=== PATIENT | male | born 1990 | race Caucasian/White ===

== ENCOUNTER 2017-02-17 13:14 | Inpatient (IN) | payer OTHER ==
[2017-02-17 14:03] VITALS: BMI 20.3
--- NOTE | 2017-02-17 15:52 | HP ---
COWS - Scale Resting Pulse: 1= CO 81-100 Sweatin=Flushed/Facial Moisture Restless Observation: 1= Difficult to Sit Still Pupil Size: 0= Normal to Room Light Bone or Joint Aches: 2= Severe Diffuse Aches Runny Nose/ Eye Tearin= Runny Nose/Eyes GI Upset > 30mins: 2= Nausea/Diarrhea Tremor Observation: 2= Slight Tremor Visible Yawning Observation: 1= 1-2x During Session Anxiety or Irritability: 2=Irritable/Anxious Goose Flesh Skin: 3=Piloerection COWS Score: 18 Admission ROS BHS - HPI Chief Complaint: "I want to get clean. I need to start the process." Pt. is here to Detox from Heroin. Allergies/Adverse Reactions: Allergies Allergy/AdvReac Type Severity Reaction Status Date / Time No Known Allergies Allergy Verified 02/17/17 14:34 History of Present Illness: Pt. is a 26 YO male here to Detox form heroin. This is pt.'s first Detox admission at [facility]. Exam Limitations: No Limitations - Ebola screening Have you traveled outside of the country in the last 21 days: No Have you had contact with anyone from an Ebola affected area: No Have you been sick,other than usual withdrawal symptoms: No Do you have a fever: No - Review of Systems Constitutional: Chills, Diaphoresis, Fever, Loss of Appetite, Malaise, Night Sweats, Changes in sleep, Unintentional Wgt. Loss (Lost apporx. 10 lbs. over last 6 months.) EENT: reports: Nose Congestion, Sinus Pressure Respiratory: reports: No Symptoms reported Cardiac: reports: No Symptoms Reported GI: reports: Diarrhea, Nausea, Poor Appetite, Indigestion, Abdominal cramping : reports: No Symptoms Reported Musculoskeletal: reports: Back Pain, Joint Pain, Muscle Pain, Joint Stiffness Integumentary: reports: No Symptoms Reported Neuro: reports: Tremors Endocrine: reports: No Symptoms Reported (+) Hematology: reports: Easy Bruising Psychiatric: reports: No Sypmtoms Reported, Judgement Intact, Mood/Affect Appropiate, Orientated x3, Anxious, Depressed (Recent. No previous treatment. Patient devclines to be evlauted by Psychaitrist during this Detox admission.) Other Systems: Reviewed and Negative Patient History - Patient Medical History Hx Anemia: No Hx Asthma: No Hx Chronic Obstructive Pulmonary Disease (COPD): No Hx Cancer: No Hx Cardiac Disorders: No Hx Congestive Heart Failure: No Hx Hypertension: No Hx Hypercholesterolemia: No Hx Pacemaker: No HX Cerebrovascular Accident: No Hx Seizures: No Hx Dementia: No Hx Diabetes: No Hx Gastrointestinal Disorders: No Hx Liver Disease: No Hx Genitourinary Disorders: No Hx Sexually Transmitted Disorders: No Hx Renal Disease (ESRD): No Hx Thyroid Disease: No Hx Human Immunodeficiency Virus (HIV): No (Never Tested.) Hx Hepatitis C: No (Never Tested.) Hx Depression: Yes (Recent. No previous treatment. Pt. declines Psych. evaluation.) Hx Suicide Attempt: No (PATIENT DENIES CURRENT SI / HI.) Hx Bipolar Disorder: No Hx Schizophrenia: No Other Medical History: DECLINES. - Patient Surgical History Past Surgical History: No Hx Neurologic Surgery: No Hx Cataract Extraction: No Hx Cardiac Surgery: No Hx Lung Surgery: No Hx Breast Surgery: No Hx Breast Biopsy: No Hx Abdominal Surgery: No Hx Appendectomy: No Hx Cholecystectomy: No Hx Genitourinary Surgery: No Hx Section: No Hx Orthopedic Surgery: No Anesthesia Reaction: No - PPD History Previous Implant?: Yes Documented Results: Negative w/o proof Implanted On Prior [facility] Admission?: No PPD to be Administered?: Yes - Reproductive History Patient is a Female of Child Bearing Age (11 -55 yrs old): No (PATIENT IS MALE.) - Smoking Cessation Smoking history: Current every day smoker Have you smoked in the past 12 months: Yes Aproximately how many cigarettes per day: 10 Cigars Per Day: 0 Hx Chewing Tobacco Use: No Initiated information on smoking cessation: Yes 'Breaking Loose' booklet given: 02/17/17 (GIVEN ON UNIT.) - Substance & Tx. History Hx Alcohol Use: No Hx Substance Use: Yes Substance Use Type: Cocaine, Heroin Hx Substance Use Treatment: No - Substances Abused Heroin Route: Injection Frequency: Daily Amount used: 10 bags Age of first use: 24 Date of Last Use: 02/15/17 Cocaine Route: Inhalation Frequency: 1-3 times last 30 days Amount used: 1 GRAM. Age of first use: 19 Date of Last Use: 02/10/17 Family Disease History - Family Disease History Family History: Denies Admission Physical Exam BHS - Vital Signs Vital Signs: Vital Signs - 24 hr 02/17/17 14:00 Temperature 98.5 F Pulse Rate 95 H Respiratory 20 Rate Blood Pressure 119/74 - Physical General Appearance: Yes: Appropriately Dressed, Mild Distress, Thin, Tremorous, Sweating, Anxious HEENTM: Yes: Hearing grossly Normal, Normocephalic, Normal Voice, JESUS, Pharynx Normal Respiratory: Yes: Chest Non-Tender, Lungs Clear, No Respiratory Distress, No Accessory Muscle Use Neck: Yes: No masses,lesions,Nodules, Supple, Trachea in good position Breast: Yes: Breast Exam Deferred Cardiology: Yes: Regular Rhythm, Regular Rate, S1, S2 Abdominal: Yes: Normal Bowel Sounds, Non Tender, Flat, Soft Genitourinary: Yes: Within Normal Limits Back: Yes: Decreased Range of Motion Musculoskeletal: Yes: Gait Steady, Back pain, Joint Stiffness Extremities: Yes: Normal Range of Motion, Tremors Neurological: Yes: Fully Oriented, Alert, Normal Mood/Affect, Normal Response Integumentary: Yes: Normal Color, Warm, Track [place] (Noted on bilateral forearms. No signs of abscess or infection noted a taffected sites.) Lymphatic: Yes: Within Normal Limits - Diagnostic (1) Opioid dependence with withdrawal Current Visit: Yes Status: Acute (2) Cocaine dependence, uncomplicated Current Visit: Yes Status: Acute (3) Nicotine dependence Current Visit: Yes Status: Chronic Qualifiers: Nicotine product type: cigarettes Substance use status: uncomplicated Qualified Code(s): F17.210 - Nicotine dependence, cigarettes, uncomplicated (4) Depression (emotion) Current Visit: Yes Status: Acute Qualifiers: Depression Type: unspecified Qualified Code(s): F32.9 - Major depressive disorder, single episode, unspecified Comment: Patient Declines Psychiatric Evaluation during Detox admission. Cleared for Admission [facility] - Detox or Rehab [facility] Level of Care: Medically Managed Detox Regimen/Protocol: Methadone [facility] Breath Alcohol Content Breath Alcohol Content: 0 Urine Drug Screen - Results Drug Screen Negative: No Urine Drug Screen Results: GAURAV-Cocaine, OPI-Opiates
[2017-02-17] MEDS ORDERED: hydrOXYzine PAMOATE 50 MG CAPSULE (FP) PO PRN (16:16)
[2017-02-17] MEDS ORDERED: ACETAMINOPHEN 325 MG TABLET (FP) PO PRN (16:16)
[2017-02-17] MEDS ORDERED: IBUPROFEN 400 MG TABLET (FP) PO PRN (16:16)
[2017-02-17] MEDS ORDERED: LOPERAMIDE HCL 2 MG CAPSULE PO PRN (16:16)
[2017-02-17] MEDS ORDERED: P-EPHED 60MG/TRIPROLIDI 2.5MG TABLET PO PRN (16:16)
[2017-02-17] MEDS ORDERED: MAGNESIUM CITRATE 300 ML BOTTLE PO PRN (16:16)
[2017-02-17] MEDS ORDERED: guaiFENesin/D-METHORPHAN HB 10 ML UNIT-DOSE CUPS PO PRN (16:16)
[2017-02-17] MEDS ORDERED: MAGNESIUM HYDROX 2400MG/30ML ORAL SUSPENSION 30 ML CUP PO PRN (16:16)
[2017-02-17] MEDS ORDERED: MENTHOL/PHENOL 1 EACH UD MM PRN (16:16)
[2017-02-17] MEDS ORDERED: MAG HYDROX/AL HYDROX/SIMETH 30 ML UNIT-DOSE CUP PO PRN (16:16)
[2017-02-17] MEDS ORDERED: METHADONE HCL 10 MG TABLET (FOR DETOX USE ONLY) PO ONE ×2 (17:15→23:00)
[2017-02-17] MEDS: NICOTINE 21 MG/24 HOURS TOPICAL PATCH TD SCH (17:48)
[2017-02-17] MEDS: diazePAM 5 MG TABLET PO PRN ×2 (17:49→22:11)
[2017-02-17] MEDS: NICOTINE POLACRILEX 2 MG GUM BC PRN (17:56)
[2017-02-17] MEDS: THIAMINE HCL 100 MG TABLET (FP) PO SCH (22:10)
[2017-02-17] MEDS: diphenhydrAMINE HCL 50 MG CAPSULE PO PRN (22:13)
[2017-02-17 22:35] LABS: URINE APPEARANCE SLCLOUDY; URINE BILIRUBIN NEGATIVE (NEGATIVE); URINE BLOOD NEGATIVE (NEGATIVE); URINE COLOR YELLOW; URINE GLUCOSE (UA) NEGATIVE (NEGATIVE); URINE KETONE NEGATIVE (NEGATIVE); URINE LEUK ESTERASE NEGATIVE (NEGATIVE); URINE NITRITE NEGATIVE (NEGATIVE); URINE PROTEIN NEGATIVE (NEGATIVE); URINE UROBILINOGEN NEGATIVE mg/dL (0.2-1.0)
[2017-02-18] MEDS: diazePAM 5 MG TABLET PO PRN ×5 (05:33→23:14)
[2017-02-18 09:37] LABS: MCH 29.8 pg (25.7-33.7); MCHC 34.1 g/dl (32.0-35.9); MEAN CELL VOLUME 87.4 fl (80-96); MEAN PLT VOLUME 10.4 fl (7.5-11.1); PLATELET COUNT 257 K/MM3 (134-434); RDW 13.2 % (11.9-15.9); WHITE BLOOD COUNT 6.3 K/mm3 (4.0-10.0)
--- NOTE | 2017-02-18 09:59 | EKG ---
Test Reason : Blood Pressure : / mmHG Vent. Rate : 089 BPM Atrial Rate : 089 BPM P-R Int : 126 ms QRS Dur : 090 ms QT Int : 378 ms P-R-T Axes : 057 089 062 degrees QTc Int : 459 ms NORMAL SINUS RHYTHM WITH SINUS ARRHYTHMIA INCOMPLETE RBBB POSSIBLE LEFT ATRIAL ENLARGEMENT BORDERLINE ECG NO PREVIOUS ECGS AVAILABLE Confirmed by VALENTINO REILLY MD ([id number]) on 02/18/2017 9:59:20 AM Referred By: Confirmed By:VALENTINO REILLY MD
[2017-02-18] MEDS ORDERED: METHADONE HCL 10 MG TABLET (FOR DETOX USE ONLY) PO ONE (10:00)
[2017-02-18 10:03] LABS: ALBUMIN 4.3 g/dl (3.4-5.0); ALK PHOS 133 U/L (45-117); ANION GAP 9 (8-16); BILIRUBIN,TOTAL 0.5 mg/dL (0.2-1.0); CALCIUM 9.4 mg/dL (8.5-10.1); CO2 24 mmol/L (21-32); CREATININE 0.9 mg/dL (0.7-1.3); GLUCOSE,RANDOM 117 mg/dL (74-106); SGOT/AST 19 U/L (15-37); SGPT/ALT 37 U/L (12-78); TOT PROT 8.1 g/dl (6.4-8.2)
[2017-02-18] MEDS: NICOTINE 21 MG/24 HOURS TOPICAL PATCH TD SCH (10:12)
[2017-02-18] MEDS: PRENATAL VITAMINS W/ FOLIC ACID TABLET (FP) PO SCH (10:12)
[2017-02-18] MEDS: NICOTINE POLACRILEX 2 MG GUM BC PRN ×4 (10:13→20:55)
--- NOTE | 2017-02-18 10:15 | PN ---
BHS COWS - Scale Resting Pulse: 1= ME 81-100 Sweatin= Chills/Flushing Restless Observation: 3= Extraneous Movement Pupil Size: 0= Normal to Room Light Bone or Joint Aches: 4=Acute Joint/Muscle Pain Runny Nose/ Eye Tearin= Nasal Congestion GI Upset > 30mins: 1= Stomach Cramp Tremor Observation of Outstretched Hands: 2= Slight Tremor Visible Yawning Observation: 1= 1-2x During Session Anxiety or Irritability: 1=Feels Anxious/Irritable Goose Flesh Skin: 0=Smooth Skin COWS Score: 15 BHS Progress Note (SOAP) Subjective: ANXIETY,CHILLS,MUSCLE ACHES,STOMACH CRAMPS,INTERMITTENT SLEEP. ALERT O X 3. NAD. OOB AMBULATING AROUND UNIT. Objective: 02/18/17 10:06 Vital Signs 02/18/17 02/18/17 02/18/17 03:34 06:11 09:46 Temperature 97.2 F L 97.3 F L Pulse Rate 82 80 Respiratory 18 18 20 Rate Blood Pressure 123/85 142/87 Laboratory Last Values WBC 6.3 K/mm3 (4.0-10.0) 02/18/17 06:00 RBC 4.91 M/mm3 (4.00-5.60) 02/18/17 06:00 Hgb 14.6 GM/dL (11.7-16.9) 02/18/17 06:00 Hct 42.9 % (35.4-49) 02/18/17 06:00 MCV 87.4 fl (80-96) 02/18/17 06:00 MCH 29.8 pg (25.7-33.7) 02/18/17 06:00 MCHC 34.1 g/dl (32.0-35.9) 02/18/17 06:00 RDW 13.2 % (11.9-15.9) 02/18/17 06:00 Plt Count 257 K/MM3 (134-434) 02/18/17 06:00 MPV 10.4 fl (7.5-11.1) 02/18/17 06:00 Sodium 138 mmol/L (136-145) 02/18/17 06:00 Potassium 4.4 mmol/L (3.5-5.1) 02/18/17 06:00 Chloride 105 mmol/L (98-107) 02/18/17 06:00 Urine Color Yellow 02/17/17 21:15 Urine Appearance Slcloudy 02/17/17 21:15 Urine pH 8.0 (5.0-8.0) 02/17/17 21:15 Ur Specific [place] 1.020 (1.005-1.025) 02/17/17 21:15 Urine Protein Negative (NEGATIVE) 02/17/17 21:15 Urine Glucose (UA) Negative (NEGATIVE) 02/17/17 21:15 Urine Ketones Negative (NEGATIVE) 02/17/17 21:15 Urine Blood Negative (NEGATIVE) 02/17/17 21:15 Urine Nitrite Negative (NEGATIVE) 02/17/17 21:15 Urine Bilirubin Negative (NEGATIVE) 02/17/17 21:15 Urine Urobilinogen Negative mg/dL (0.2-1.0) 02/17/17 21:15 OTHER LABS PENDING REPEAT EKG: NSR RIGHT BBB PROLONGED QT ABNORMAL EKG DENIES CHEST DISCOMFORT OR PREVIOUS CARDIAC HX. PREVIOUSLY: NSR WITH SINUS ARRYTHMIA INCOMPLETE RBBB POSIBLE LEFT ATRIAL ENLARGEMENT BORDERLINE EKG Assessment: 02/18/17 10:07 WITHDRAWAL SX Plan: WITHDRAWAL SX INCREASE PO FLUIDS.
--- NOTE | 2017-02-18 10:25 | EKG ---
Test Reason : Blood Pressure : / mmHG Vent. Rate : 081 BPM Atrial Rate : 081 BPM P-R Int : 128 ms QRS Dur : 094 ms QT Int : 416 ms P-R-T Axes : 055 087 069 degrees QTc Int : 483 ms NORMAL SINUS RHYTHM INCOMPLETE RIGHT BUNDLE BRANCH BLOCK PROLONGED QT ABNORMAL ECG WHEN COMPARED WITH ECG OF 17-FEB-2017 17:59, NO SIGNIFICANT CHANGE WAS FOUND Confirmed by TOMMIE ALMONTE, VALENTINO ([id number]) on 02/18/2017 10:25:12 AM Referred By: Confirmed By:VALENTINO REILLY MD
[2017-02-18 11:01] LABS: HIV 1 & 2 AB NEGATIVE; HIV 1 AGp24 NEGATIVE
[2017-02-18] MEDS: THIAMINE HCL 100 MG TABLET (FP) PO SCH (22:01)
[2017-02-18] MEDS: diphenhydrAMINE HCL 50 MG CAPSULE PO PRN (22:01)
[2017-02-19] MEDS: diphenhydrAMINE HCL 50 MG CAPSULE PO PRN ×2 (01:46→22:07)
[2017-02-19] MEDS: diazePAM 5 MG TABLET PO PRN ×5 (06:00→23:17)
[2017-02-19] MEDS ORDERED: METHADONE HCL 5 MG TABLET (FOR DETOX USE ONLY) PO ONE (10:00)
[2017-02-19] MEDS: PRENATAL VITAMINS W/ FOLIC ACID TABLET (FP) PO SCH (10:09)
[2017-02-19] MEDS: NICOTINE 21 MG/24 HOURS TOPICAL PATCH TD SCH (10:09)
--- NOTE | 2017-02-19 10:26 | PN ---
BHS COWS - Scale Resting Pulse: 0= HI 80 or Below Sweatin= Chills/Flushing Restless Observation: 3= Extraneous Movement Pupil Size: 0= Normal to Room Light Bone or Joint Aches: 4=Acute Joint/Muscle Pain Runny Nose/ Eye Tearin= Nasal Congestion GI Upset > 30mins: 1= Stomach Cramp Tremor Observation of Outstretched Hands: 1= Tremor [place], Not Seen Yawning Observation: 1= 1-2x During Session Anxiety or Irritability: 1=Feels Anxious/Irritable Goose Flesh Skin: 0=Smooth Skin COWS Score: 13 BHS Progress Note (SOAP) Subjective: SLIGHT ANXIETY,CHILLS,SWEATS. Objective: 02/19/17 10:23 Vital Signs Temperature 96.5 F L 02/19/17 09:52 Pulse Rate 73 02/19/17 09:52 Respiratory Rate 16 02/19/17 09:52 Blood Pressure 136/84 02/19/17 09:52 O2 Sat by Pulse Oximetry (%) Laboratory Last Values WBC 6.3 K/mm3 (4.0-10.0) 02/18/17 06:00 RBC 4.91 M/mm3 (4.00-5.60) 02/18/17 06:00 Hgb 14.6 GM/dL (11.7-16.9) 02/18/17 06:00 Hct 42.9 % (35.4-49) 02/18/17 06:00 MCV 87.4 fl (80-96) 02/18/17 06:00 MCH 29.8 pg (25.7-33.7) 02/18/17 06:00 MCHC 34.1 g/dl (32.0-35.9) 02/18/17 06:00 RDW 13.2 % (11.9-15.9) 02/18/17 06:00 Plt Count 257 K/MM3 (134-434) 02/18/17 06:00 MPV 10.4 fl (7.5-11.1) 02/18/17 06:00 Sodium 138 mmol/L (136-145) 02/18/17 06:00 Potassium 4.4 mmol/L (3.5-5.1) 02/18/17 06:00 Chloride 105 mmol/L (98-107) 02/18/17 06:00 Carbon Dioxide 24 mmol/L (21-32) 02/18/17 06:00 Anion Gap 9 (8-16) 02/18/17 06:00 BUN 8 mg/dL (7-18) 02/18/17 06:00 Creatinine 0.9 mg/dL (0.7-1.3) 02/18/17 06:00 Creat Clearance w eGFR > 60 (>60) 02/18/17 06:00 Random Glucose 117 mg/dL (74-106) H 02/18/17 06:00 Calcium 9.4 mg/dL (8.5-10.1) 02/18/17 06:00 Total Bilirubin 0.5 mg/dL (0.2-1.0) 02/18/17 06:00 AST 19 U/L (15-37) 02/18/17 06:00 ALT 37 U/L (12-78) 02/18/17 06:00 Alkaline Phosphatase 133 U/L (45-117) H 02/18/17 06:00 Total Protein 8.1 g/dl (6.4-8.2) 02/18/17 06:00 Albumin 4.3 g/dl (3.4-5.0) 02/18/17 06:00 Urine Color Yellow 02/17/17 21:15 Urine Appearance Slcloudy 02/17/17 21:15 Urine pH 8.0 (5.0-8.0) 02/17/17 21:15 Ur Specific [place] 1.020 (1.005-1.025) 02/17/17 21:15 Urine Protein Negative (NEGATIVE) 02/17/17 21:15 Urine Glucose (UA) Negative (NEGATIVE) 02/17/17 21:15 Urine Ketones Negative (NEGATIVE) 02/17/17 21:15 Urine Blood Negative (NEGATIVE) 02/17/17 21:15 Urine Nitrite Negative (NEGATIVE) 02/17/17 21:15 Urine Bilirubin Negative (NEGATIVE) 02/17/17 21:15 Urine Urobilinogen Negative mg/dL (0.2-1.0) 02/17/17 21:15 RPR Titer Nonreactive (NONREACTIVE) 02/18/17 06:00 Hepatitis C Antibody <0.1 s/co ratio (0.0-0.9) 02/17/17 06:00 HIV 1&2 Antibody Screen Negative 02/17/17 06:00 HIV P24 Antigen Negative 02/17/17 06:00 Assessment: 02/19/17 10:23 WITHDRAWAL SX Plan: CONTINUE DETOX
[2017-02-19] MEDS: NICOTINE POLACRILEX 2 MG GUM BC PRN ×2 (17:24→20:28)
[2017-02-19] MEDS: THIAMINE HCL 100 MG TABLET (FP) PO SCH (22:06)
[2017-02-20] MEDS: diphenhydrAMINE HCL 50 MG CAPSULE PO PRN ×2 (00:22→22:05)
[2017-02-20] MEDS: diazePAM 5 MG TABLET PO PRN ×3 (05:27→14:29)
--- NOTE | 2017-02-20 09:22 | PN ---
BHS Progress Note (SOAP) Subjective: Interrupted Sleep. Objective: PT. A & O X 3, OBSERVED AMBULATING ON UNIT. NO ACUTE DISTRESS. 02/20/17 09:18 Vital Signs Temperature 96.9 F L 02/20/17 06:17 Pulse Rate 69 02/20/17 06:17 Respiratory Rate 18 02/20/17 06:17 Blood Pressure 129/87 02/20/17 06:17 O2 Sat by Pulse Oximetry (%) Laboratory Tests 02/17/17 02/17/17 02/17/17 06:00 06:00 21:15 WBC RBC Hgb Hct MCV MCH MCHC RDW Plt Count MPV Sodium Potassium Chloride Carbon Dioxide Anion Gap BUN Creatinine Creat Clearance w eGFR Random Glucose Calcium Total Bilirubin AST ALT Alkaline Phosphatase Total Protein Albumin Urine Color Yellow Urine Appearance Slcloudy Urine pH 8.0 Ur Specific [place] 1.020 Urine Protein Negative Urine Glucose (UA) Negative Urine Ketones Negative Urine Blood Negative Urine Nitrite Negative Urine Bilirubin Negative Urine Urobilinogen Negative RPR Titer Hepatitis C Antibody <0.1 HIV 1&2 Antibody Screen Negative HIV P24 Antigen Negative 02/18/17 02/18/17 02/18/17 06:00 06:00 06:00 WBC 6.3 RBC 4.91 Hgb 14.6 Hct 42.9 MCV 87.4 MCH 29.8 MCHC 34.1 RDW 13.2 Plt Count 257 MPV 10.4 Sodium 138 Potassium 4.4 Chloride 105 Carbon Dioxide 24 Anion Gap 9 BUN 8 Creatinine 0.9 Creat Clearance w eGFR > 60 Random Glucose 117 H Calcium 9.4 Total Bilirubin 0.5 AST 19 ALT 37 Alkaline Phosphatase 133 H Total Protein 8.1 Albumin 4.3 Urine Color Urine Appearance Urine pH Ur Specific [place] Urine Protein Urine Glucose (UA) Urine Ketones Urine Blood Urine Nitrite Urine Bilirubin Urine Urobilinogen RPR Titer Nonreactive Hepatitis C Antibody HIV 1&2 Antibody Screen HIV P24 Antigen LABS NOTED. Assessment: 02/20/17 09:18 WITHDRAWAL SYMPTOMS. Plan: CONTINUE DETOX. PATIENT REPORTS MINIMAL DETOX SYMPTOMS AND THAT HE FEELING WELL OVERALL. AT PATIENT'S REQUEST, CURRENT DETOX MEDICATION REGIMEN (METHADONE) MODIFIED SO THAT PATIENT MAY BE DISCHARGED ON 02/21/2017.
[2017-02-20] MEDS ORDERED: METHADONE HCL 10 MG TABLET (FOR DETOX USE ONLY) PO ONE (10:00)
[2017-02-20] MEDS ORDERED: METHADONE HCL 5 MG TABLET (FOR DETOX USE ONLY) PO ONE (10:00)
[2017-02-20] MEDS: NICOTINE 21 MG/24 HOURS TOPICAL PATCH TD SCH (10:07)
[2017-02-20] MEDS: PRENATAL VITAMINS W/ FOLIC ACID TABLET (FP) PO SCH (10:08)
[2017-02-20] MEDS: NICOTINE POLACRILEX 2 MG GUM BC PRN ×3 (13:05→23:36)
[2017-02-20] MEDS: THIAMINE HCL 100 MG TABLET (FP) PO SCH (22:05)
[2017-02-21] MEDS: diphenhydrAMINE HCL 50 MG CAPSULE PO PRN (01:04)
[2017-02-21] MEDS ORDERED: METHADONE HCL 5 MG TABLET (FOR DETOX USE ONLY) PO ONE (06:00)
[2017-02-21 06:32] VITALS: BP 123/76; PULSE 75; TEMP 96.8
[2017-02-21] MEDS ORDERED: METHADONE HCL 10 MG TABLET (FOR DETOX USE ONLY) PO ONE (10:00)
--- NOTE | 2017-02-21 20:03 | DS ---
[facility] Detox Discharge Summary Admission Date: 02/17/17 Discharge Date: 02/21/17 - History Present History: Cocaine Dependence, Opioid Dependence Additional Comments: PATIENT GOING TO [facility] ([facility]) FOR AFTERCARE. PATIENT WAS DISCHARGED FROM DETOX UNIT IN STABLE MEDICAL CONDITION. Pertinent Past History: Depression. - Physical Exam Results Vital Signs: Vital Signs Temperature 96.8 F L 02/21/17 06:32 Pulse Rate 75 02/21/17 06:32 Respiratory Rate 16 02/21/17 06:32 Blood Pressure 123/76 02/21/17 06:32 O2 Sat by Pulse Oximetry (%) Pertinent Admission Physical Exam Findings: WITHDRAWAL SYMPTOMS. Laboratory Tests 02/17/17 02/17/17 02/17/17 06:00 06:00 21:15 WBC RBC Hgb Hct MCV MCH MCHC RDW Plt Count MPV Sodium Potassium Chloride Carbon Dioxide Anion Gap BUN Creatinine Creat Clearance w eGFR Random Glucose Calcium Total Bilirubin AST ALT Alkaline Phosphatase Total Protein Albumin Urine Color Yellow Urine Appearance Slcloudy Urine pH 8.0 Ur Specific [place] 1.020 Urine Protein Negative Urine Glucose (UA) Negative Urine Ketones Negative Urine Blood Negative Urine Nitrite Negative Urine Bilirubin Negative Urine Urobilinogen Negative RPR Titer Hepatitis C Antibody <0.1 HIV 1&2 Antibody Screen Negative HIV P24 Antigen Negative 02/18/17 02/18/17 02/18/17 06:00 06:00 06:00 WBC 6.3 RBC 4.91 Hgb 14.6 Hct 42.9 MCV 87.4 MCH 29.8 MCHC 34.1 RDW 13.2 Plt Count 257 MPV 10.4 Sodium 138 Potassium 4.4 Chloride 105 Carbon Dioxide 24 Anion Gap 9 BUN 8 Creatinine 0.9 Creat Clearance w eGFR > 60 Random Glucose 117 H Calcium 9.4 Total Bilirubin 0.5 AST 19 ALT 37 Alkaline Phosphatase 133 H Total Protein 8.1 Albumin 4.3 Urine Color Urine Appearance Urine pH Ur Specific [place] Urine Protein Urine Glucose (UA) Urine Ketones Urine Blood Urine Nitrite Urine Bilirubin Urine Urobilinogen RPR Titer Nonreactive Hepatitis C Antibody HIV 1&2 Antibody Screen HIV P24 Antigen LABS NOTED. - Treatment Hospital Course: Detox Protocol Followed, Detoxed Safely, Responded well, Discharged Condition Good, Rehab Referral Accepted Patient has Accepted a Rehab Referral to: [facility] ([facility] - Medication Discharge Medications: Ambulatory Orders NK [No Known Home Medication] 02/17/17 - Diagnosis (1) Opioid dependence with withdrawal Status: Acute (2) Cocaine dependence, uncomplicated Status: Acute (3) Nicotine dependence Status: Chronic Qualifiers: Nicotine product type: cigarettes Substance use status: uncomplicated Qualified Code(s): F17.210 - Nicotine dependence, cigarettes, uncomplicated (4) Depression (emotion) Status: Acute Qualifiers: Depression Type: unspecified Qualified Code(s): F32.9 - Major depressive disorder, single episode, unspecified - AMA Did Patient Leave Against Medical Advice: No
[2017-02-22] MEDS ORDERED: METHADONE HCL 5 MG TABLET (FOR DETOX USE ONLY) PO ONE (06:00)
== END 2017-02-21 09:34 | disposition home or self-care (01) | DRG 773 ==
LOC: YASAS 13:14 → Y3N 15:40
PROVIDERS: ADMIT Internal Medicine; ATTEND Internal Medicine
PROC: HZ2ZZZZ Detoxification Services for Substance Abuse Treatment (ICD-10-PCS; principal; 2017-02-17)
DX: F11.23 Opioid dependence with withdrawal (principal); F14.20 Cocaine dependence, uncomplicated; F17.210 Nicotine dependence, cigarettes, uncomplicated; F32.9 Major depressive disorder, single episode, unspecified
CPT/HCPCS: 36415; 80053; 81003; 85027; 86593; 86803; 87389; 93005; 93010

== ENCOUNTER 2019-03-07 17:01 | Inpatient (IN) | payer OTHER ==
[2019-03-07 19:45] VITALS: BMI 23.1
--- NOTE | 2019-03-07 21:45 | HP ---
"COWS - Scale Resting Pulse: 0= [place] 80 or Below Sweatin=Flushed/Facial Moisture Restless Observation: 1= Difficult to Sit Still Pupil Size: 2= Moderately Dilated (Pupils = 5 mm) Bone or Joint Aches: 1= Mild Discomfort Runny Nose/ Eye Tearin= Nasal Congestion GI Upset > 30mins: 1= Stomach Cramp Tremor Observation: 2= Slight Tremor Visible Yawning Observation: 0= None Anxiety or Irritability: 2=Irritable/Anxious Goose Flesh Skin: 0=Smooth Skin COWS Score: 12 CIWA Score - Admission Criteria OASAS Guidelines: Admission for Medically Managed Detox: Requires at least one of the followin. CIWA greater than 12 2. Seizures within the past 24 hours 3. Delirium tremens within the past 24 hours 4. Hallucinations within the past 24 hours 5. Acute intervention needed for co occurring medical disorder 6. Acute intervention needed for co occurring psychiatric disorder 7. Severe withdrawal that cannot be handled at a lower level of care (continued vomiting, continued diarrhea, abnormal vital signs) requiring intravenous medication and/or fluids 8. Admitting History and Physical - Smoking History Smoking history: Current every day smoker Have you smoked in the past 12 months: Yes Aproximately how many cigarettes per day: 10 - Alcohol/Substance Use Hx Alcohol Use: No Admission ROS S - HPI Chief Complaint: Here for detox. Allergies/Adverse Reactions: Allergies Allergy/AdvReac Type Severity Reaction Status Date / Time No Known Allergies Allergy Verified 03/07/19 19:36 History of Present Illness: 28 yo presents w/ heroin withdrawal and seeking detox. Patient states needs to leave in five days. Heroin use began at age 24. Current use is 7 bags/day, IV. for 1.5 months. Denies sharing needles or works. Benzo - denies use. Overdose in 2018. [facility] has Narcan Kit @ home Seizure in 2014 unknown reason. [facility] all tests were normal. Denies blackouts. Alcohol use 5-6 beers approx 1-2 x/month, at most. Nicotine use began at age 18. Current use is 1/2 PPD. 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 MHHx: Denies depression. Denies thoughts of harming self or others. SHx: Lives w/ parents. Unemployed. Search Terms: Bryan Benz, 1990 Search Date: 03/07/2019 09:37:45 PM The Drug Utilization Report below displays all of the controlled substance prescriptions, if any, that your patient has filled in the last twelve months. The information displayed on this report is compiled from pharmacy submissions to the Department, and accurately reflects the information as submitted by the pharmacies. This report was requested by: Jaimee Thompson | Reference #: [id number] There are no results for the search terms that you entered. Search Terms: Bryan Benz, 1990 Search Date: 03/07/2019 09:38:14 PM States Searched: [place], [place], [place], [place], [place], [place], [place] The Drug Utilization Report below displays the controlled substance prescriptions, if any, that were dispensed in the indicated state(s). The information displayed on this report is compiled from requests submitted to other states' PMPs, and accurately reflects the information as returned by them. Blank quispe indicate data not provided by other state. This report was requested by: Jaimee Thompson | Reference #: [id number] There are no results for the search terms that you entered. Exam Limitations: No Limitations - Ebola screening Have you traveled outside of the country in the last 21 days: No (N) Have you had contact with anyone from an Ebola affected area: No Have you been sick,other than usual withdrawal symptoms: No Do you have a fever: No - Review of Systems Constitutional: Chills, Diaphoresis, Changes in sleep (Difficulty falling asleep. Not taking any meds) EENT: reports: Nose Congestion Respiratory: reports: No Symptoms reported Cardiac: reports: No Symptoms Reported GI: reports: Abdominal cramping : reports: No Symptoms Reported Musculoskeletal: reports: Other (Bone pain r/t withdrawal) Integumentary: reports: No Symptoms Reported Neuro: reports: Seizure Endocrine: reports: No Symptoms Reported Hematology: reports: No Symptoms Reported Psychiatric: reports: Mood/Affect Appropiate, Orientated x3, Anxious Patient History - Patient Medical History Hx Anemia: No Hx Asthma: No Hx Chronic Obstructive Pulmonary Disease (COPD): No Hx Cancer: No Hx Cardiac Disorders: No Hx Congestive Heart Failure: No Hx Hypertension: No Hx Hypercholesterolemia: No Hx Pacemaker: No HX Cerebrovascular Accident: No Hx Seizures: No Hx Dementia: No Hx Diabetes: No Hx Gastrointestinal Disorders: No Hx Liver Disease: No Hx Genitourinary Disorders: No Hx Sexually Transmitted Disorders: No Hx Renal Disease (ESRD): No Hx Thyroid Disease: No Hx Human Immunodeficiency Virus (HIV): No (Never Tested.) Hx Hepatitis C: No (Never Tested.) Hx Depression: Yes (Recent. No previous treatment. Pt. declines Psych. evaluation.) Hx Suicide Attempt: No (PATIENT DENIES CURRENT SI / HI.) Hx Bipolar Disorder: No Hx Schizophrenia: No - Patient Surgical History Past Surgical History: No Hx Neurologic Surgery: No Hx Cataract Extraction: No Hx Cardiac Surgery: No Hx Lung Surgery: No Hx Breast Surgery: No Hx Breast Biopsy: No Hx Abdominal Surgery: No Hx Appendectomy: No Hx Cholecystectomy: No Hx Genitourinary Surgery: No Hx Section: No Hx Orthopedic Surgery: No Anesthesia Reaction: No - PPD History Previous Implant?: Yes Documented Results: Negative w/proof Implanted On Prior [facility] Admission?: Yes Date: 02/19/17 PPD to be Administered?: Yes - Smoking Cessation Smoking history: Current every day smoker Have you smoked in the past 12 months: Yes Aproximately how many cigarettes per day: 10 Cigars Per Day: 0 Hx Chewing Tobacco Use: No Initiated information on smoking cessation: Yes 'Breaking Loose' booklet given: 03/07/19 - Substance & Tx. History Hx Alcohol Use: Yes (!-2 x / month, at most) Hx Substance Use: Yes Substance Use Type: Heroin, Opiates Hx Substance Use Treatment: Yes (detox, rehab) - Substances abused Heroin Substance route: Injection Frequency: Daily Amount used: $70 Age of first use: 24 Date of last use: 03/07/19 Admission Physical Exam S - Vital Signs Vital Signs: Vital Signs - 24 hr 03/07/19 19:36 Temperature 98.1 F Pulse Rate 74 Respiratory 20 Rate Blood Pressure 148/85 - Physical General Appearance: Yes: Nourished, Mild Distress, Tremorous, Sweating ( Increased facial moisture), Anxious HEENTM: Yes: EOMI, Hearing grossly Normal, Normal ENT Inspection, Normocephalic , Normal Voice, JESUS (Pupils = 5 mm), Pharynx Normal, Nasal Congestion, Other ( Thickened saliva.) Respiratory: Yes: Lungs Clear (Pulse Ox = 99 %), Normal Breath Sounds, No Respiratory Distress Neck: Yes: No masses,lesions,Nodules, Supple Breast: Yes: Breast Exam Deferred Cardiology: Yes: Regular Rhythm, Regular Rate, S1, S2 Abdominal: Yes: Normal Bowel Sounds, Non Tender, Flat, Soft Genitourinary: Yes: Within Normal Limits Back: Yes: Normal Inspection Musculoskeletal: Yes: full range of Motion, Gait Steady Extremities: Yes: Normal Capillary Refill, Tremors Neurological: Yes: clinical laboratory assistant II-XII NML intact, Fully Oriented, Alert, Motor Strength 5/5 Integumentary: Yes: Normal Color, Warm, Diaphoresis (Increased facial moisture) , Rash (Dry, flaky rash (R) palm), Track Huerta (antecubital areas. No increased warmth, erythmea, or swelling.), Other (Decreased skin turgor.) Lymphatic: Yes: Within Normal Limits - Diagnostic (1) History of abnormal electrocardiogram Current Visit: Yes Status: Chronic (2) Opioid dependence with withdrawal Current Visit: Yes Status: Acute (3) Nicotine dependence Current Visit: Yes Status: Chronic Qualifiers: Nicotine product type: cigarettes Substance use status: uncomplicated Qualified Code(s): F17.210 - Nicotine dependence, cigarettes, uncomplicated (4) IVDU (intravenous drug user) Current Visit: Yes Status: Chronic (5) Eczema Current Visit: Yes Status: Chronic Qualifiers: Eczema type: unspecified Qualified Code(s): L30.9 - Dermatitis, unspecified (6) Dehydration symptoms Current Visit: Yes Status: Acute Cleared for Admission [facility] - Detox or Rehab [facility] Level of Care: Medically Managed Detox Regimen/Protocol: Methadone Claeared for Rehab Admission: No Breathalyzer - Breathalyzer Breathalyzer: 0 Urine Drug Screen - Test Device Lot number: [id number] Expiration date: 11/05/20 - Control Is test valid?: Yes - Results Drug screen NEGATIVE: Yes Urine drug screen results: FEN-Fentanyl, MOP-Opiates, BZO-Benzodiazepines Inpatient Rehab Admission - Rehab Decision to Admit Inpatient rehab admission?: No"
[2019-03-07] MEDS ORDERED: PROCHLORPERAZINE MALEATE 5 MG TABLET PO PRN (22:04)
[2019-03-07] MEDS ORDERED: METHADONE HCL 10 MG TABLET (FOR DETOX USE ONLY) PO ONE (22:04)
[2019-03-07] MEDS ORDERED: MAGNESIUM HYDROX 2400MG/30ML ORAL SUSPENSION 30 ML CUP PO PRN (22:04)
[2019-03-07] MEDS ORDERED: MENTHOL/PHENOL 1 EACH UD MM PRN (22:04)
[2019-03-07] MEDS ORDERED: IBUPROFEN 400 MG TABLET (FP) PO PRN (22:04)
[2019-03-07] MEDS ORDERED: MAGNESIUM CITRATE 300 ML BOTTLE PO PRN (22:04)
[2019-03-07] MEDS ORDERED: MELATONIN 5 MG TABLETS PO PRN (22:04)
[2019-03-07] MEDS ORDERED: ACETAMINOPHEN 325 MG TABLET (FP) PO PRN ×2 (22:04)
[2019-03-07] MEDS ORDERED: cloNIDine HCL 0.1 MG TABLET PO PRN (22:04)
[2019-03-07] MEDS ORDERED: BISMUTH SUBSALICYLATE 524 MG/30 ML UD PO PRN (22:04)
[2019-03-07] MEDS ORDERED: MAG HYDROX/AL HYDROX/SIMETH 30 ML UNIT-DOSE CUP PO PRN (22:04)
[2019-03-07] MEDS ORDERED: HYDROCORTISONE 1% TOPICAL CREAM 30 GM TUBE TP PRN (22:15)
[2019-03-07] MEDS ORDERED: QUEtiapine FUMARATE 50 MG TABLET PO ONE (23:00)
--- NOTE | 2019-03-08 08:33 | CONSULT ---
[facility] Psychiatric Consult - Data Date of interview: 03/08/19 Admission source: Self-referred Identifying data: Mr Benz is a 28 years old single male, unemployed with no source of income, living with family seeking detox treatment for alcohol and opioid Substance Abuse History: Reports history of alcohol and heroin use. Refer to addiction counselor's summary for further information Medical History: Significant for history of withdral siezure. Smokes 10 cigarettes daily Psychiatric History: Denies history of previous psychiatric treatment Physical/Sexual Abuse/Trauma History: Denies history of emotional, physical or sexual abuse as well as DV relationship Mental Status Exam - Mental Status Exam Alert and Oriented to: Time, Place, Person Cognitive Function: Fair Patient Appearance: Disheveled Mood: Hopeful, Euthymic Patient Behavior: Cooperative Speech Pattern: Clear Thought Process: Goal Oriented Hallucinations: Denies Suicidal Ideation: Denies Homicidal Ideation: Denies Insight/Judgement: Poor Sleep: Poorly Appetite: Good Muscle strength/Tone: Normal Gait/Station: Normal Psychiatric Findings - Problem List ([place] 1, 2,3) (1) Substance-induced sleep disorder Current Visit: Yes Status: Acute (2) Opioid dependence with withdrawal Current Visit: Yes Status: Acute (3) Alcohol abuse Current Visit: Yes Status: Acute (4) Nicotine dependence Current Visit: Yes Status: Chronic Qualifiers: Nicotine product type: cigarettes Substance use status: uncomplicated Qualified Code(s): F17.210 - Nicotine dependence, cigarettes, uncomplicated - Initial Treatment Plan Initial Treatment Plan: 1) Start Belsomra 10 mg po HS prn for insomnia. 2) Continue inpatient detoxification
[2019-03-08] MEDS: NICOTINE POLACRILEX 2 MG GUM BUC PRN ×3 (09:58→21:06)
[2019-03-08] MEDS: PRENATAL VITAMINS W/ FOLIC ACID TABLET (FP) PO SCH (09:58)
[2019-03-08] MEDS: NICOTINE 14 MG/24 HOURS TOPICAL PATCH TD SCH (09:58)
[2019-03-08] MEDS ORDERED: METHADONE HCL 10 MG TABLET PO ONE (10:00)
--- NOTE | 2019-03-08 10:14 | EKG ---
Test Reason : Blood Pressure : / mmHG Vent. Rate : 069 BPM Atrial Rate : 069 BPM P-R Int : 134 ms QRS Dur : 096 ms QT Int : 428 ms P-R-T Axes : 027 085 065 degrees QTc Int : 458 ms NORMAL SINUS RHYTHM INCOMPLETE RIGHT BUNDLE BRANCH BLOCK BORDERLINE ECG WHEN COMPARED WITH ECG OF 18-FEB-2017 09:09, NO SIGNIFICANT CHANGE WAS FOUND Confirmed by Dameon Escamilla MD ([id number]) on 03/08/2019 10:14:06 AM Referred By: Confirmed By:Dameon Escamilla MD
[2019-03-08 11:59] LABS: HEMATOCRIT 38.8 % (35.4-49); HEMOGLOBIN 13.4 GM/dL (11.7-16.9); MCH 31.4 pg (25.7-33.7); MCHC 34.6 g/dl (32.0-35.9); MEAN PLT VOLUME 9.2 fl (7.5-11.1); PLATELET COUNT 267 K/MM3 (134-434); RBC 4.27 M/mm3 (4.00-5.60); RDW 12.8 % (11.9-15.9); WHITE BLOOD COUNT 7.9 K/mm3 (4.0-10.0)
--- NOTE | 2019-03-08 12:44 | PN ---
[facility] COWS - Scale Resting Pulse: 0= [place] 80 or Below Sweatin=Flushed/Facial Moisture Restless Observation: 1= Difficult to Sit Still Pupil Size: 0= Normal to Room Light Bone or Joint Aches: 1= Mild Discomfort Runny Nose/ Eye Tearin= Runny Nose/Eyes GI Upset > 30mins: 1= Stomach Cramp Tremor Observation of Outstretched Hands: 1= Tremor [place], Not Seen Yawning Observation: 1= 1-2x During Session Anxiety or Irritability: 2=Irritable/Anxious Goose Flesh Skin: 0=Smooth Skin COWS Score: 11 [facility] Progress Note (SOAP) Subjective: agitation sweats shakes interrupted sleep body aches irritable Objective: 03/08/19 12:37 Vital Signs Temperature 96.8 F L 03/08/19 09:48 Pulse Rate 71 03/08/19 09:48 Respiratory Rate 18 03/08/19 09:48 Blood Pressure 126/58 L 03/08/19 09:48 O2 Sat by Pulse Oximetry (%) Laboratory Tests 03/08/19 08:45 WBC 7.9 RBC 4.27 Hgb 13.4 Hct 38.8 MCV 91.0 MCH 31.4 MCHC 34.6 RDW 12.8 Plt Count 267 MPV 9.2 D rest of labs pending aaox3 ambulating no acute distress Assessment: 03/08/19 12:37 withdrawals sx Plan: continue detox increase fluids valium 10mg prn x 3 days only
[2019-03-08 12:48] LABS: ALBUMIN 3.6 g/dl (3.4-5.0); BILIRUBIN,TOTAL 0.2 mg/dL (0.2-1); BLOOD UREA NITROGEN 12.4 mg/dL (7-18); CREATININE 1.3 mg/dL (0.55-1.3); POTASSIUM 4.4 mmol/L (3.5-5.1); TOT PROT 6.6 g/dl (6.4-8.2)
[2019-03-08] MEDS: THIAMINE HCL 100 MG TABLET (FP) PO SCH (22:15)
[2019-03-08] MEDS: SUVOREXANT 10 MG TABLET PO PRN (22:15)
[2019-03-08] MEDS: diazePAM 5 MG TABLET PO PRN (22:15)
[2019-03-09] MEDS: PRENATAL VITAMINS W/ FOLIC ACID TABLET (FP) PO SCH (09:34)
[2019-03-09] MEDS: NICOTINE 14 MG/24 HOURS TOPICAL PATCH TD SCH (09:35)
[2019-03-09] MEDS: NICOTINE POLACRILEX 2 MG GUM BUC PRN ×4 (09:36→20:44)
[2019-03-09] MEDS: diazePAM 5 MG TABLET PO PRN ×4 (09:39→22:40)
[2019-03-09] MEDS ORDERED: METHADONE HCL 5 MG TABLET (FOR DETOX USE ONLY) PO ONE (10:00)
--- NOTE | 2019-03-09 10:52 | PN ---
B[facility] COWS - Scale Resting Pulse: 0= [place] 80 or Below Sweatin= Chills/Flushing Restless Observation: 1= Difficult to Sit Still Pupil Size: 0= Normal to Room Light Bone or Joint Aches: 2= Severe Diffuse Aches Runny Nose/ Eye Tearin= Nasal Congestion GI Upset > 30mins: 0= None Tremor Observation of Outstretched Hands: 1= Tremor [place], Not Seen Yawning Observation: 1= 1-2x During Session Anxiety or Irritability: 2=Irritable/Anxious Goose Flesh Skin: 0=Smooth Skin COWS Score: 9 [facility] Progress Note (SOAP) Subjective: restless chills hot/cold sweats interrupted sleep Objective: 03/09/19 10:52 Vital Signs Temperature 97.7 F 03/09/19 09:23 Pulse Rate 74 03/09/19 09:23 Respiratory Rate 18 03/09/19 09:23 Blood Pressure 143/80 03/09/19 09:23 O2 Sat by Pulse Oximetry (%) Laboratory Tests 03/08/19 03/08/19 03/08/19 08:45 08:45 08:45 WBC 7.9 RBC 4.27 Hgb 13.4 Hct 38.8 MCV 91.0 MCH 31.4 MCHC 34.6 RDW 12.8 Plt Count 267 MPV 9.2 D Sodium 141 Potassium 4.4 Chloride 106 Carbon Dioxide 28 Anion Gap 7 L BUN 12.4 Creatinine 1.3 Est GFR (CKD-EPI)AfAm 84.86 Est GFR (CKD-EPI)NonAf 73.22 Random Glucose 92 Calcium 9.0 Total Bilirubin 0.2 AST 6 L ALT 18 Alkaline Phosphatase 87 Total Protein 6.6 Albumin 3.6 RPR Titer Nonreactive labs noted aaox3 ambulating no acute distress Assessment: 03/09/19 10:52 withdrawals Plan: continue detox increase fluids
[2019-03-09] MEDS: THIAMINE HCL 100 MG TABLET (FP) PO SCH (22:09)
[2019-03-09] MEDS: SUVOREXANT 10 MG TABLET PO PRN (22:09)
[2019-03-10] MEDS ORDERED: METHADONE HCL 10 MG TABLET (FOR DETOX USE ONLY) PO ONE (10:00)
[2019-03-10] MEDS: NICOTINE 14 MG/24 HOURS TOPICAL PATCH TD SCH (10:02)
[2019-03-10] MEDS: PRENATAL VITAMINS W/ FOLIC ACID TABLET (FP) PO SCH (10:02)
[2019-03-10] MEDS: NICOTINE POLACRILEX 2 MG GUM BUC PRN ×4 (10:03→21:45)
[2019-03-10] MEDS: diazePAM 5 MG TABLET PO PRN ×4 (10:05→23:00)
[2019-03-10] MEDS ORDERED: DICYCLOMINE HCL 10 MG CAPSULE PO PRN (12:35)
--- NOTE | 2019-03-10 12:35 | PN ---
B[facility] COWS - Scale Resting Pulse: 0= [place] 80 or Below Sweatin= Chills/Flushing Restless Observation: 1= Difficult to Sit Still Pupil Size: 0= Normal to Room Light Bone or Joint Aches: 1= Mild Discomfort Runny Nose/ Eye Tearin= None GI Upset > 30mins: 0= None Tremor Observation of Outstretched Hands: 0= None Yawning Observation: 0= None Anxiety or Irritability: 1=Feels Anxious/Irritable Goose Flesh Skin: 0=Smooth Skin COWS Score: 4 [facility] Progress Note (SOAP) Subjective: anxiety upset stomach cramping Objective: 03/10/19 12:34 Vital Signs Temperature 97.9 F 03/10/19 09:47 Pulse Rate 79 03/10/19 09:47 Respiratory Rate 16 03/10/19 09:47 Blood Pressure 138/82 03/10/19 09:47 O2 Sat by Pulse Oximetry (%) aaox3 ambulating no acute distress Assessment: 03/10/19 12:34 mild withdrawals Plan: continue detox increase fluids bently prn d/c in am
[2019-03-10] MEDS: METHOCARBAMOL 500 MG TABLET PO PRN ×2 (14:14→21:44)
[2019-03-10] MEDS: THIAMINE HCL 100 MG TABLET (FP) PO SCH (21:44)
[2019-03-10] MEDS: SUVOREXANT 10 MG TABLET PO PRN (21:44)
[2019-03-11] MEDS ORDERED: METHADONE HCL 5 MG TABLET (FOR DETOX USE ONLY) PO ONE (06:00)
[2019-03-11] MEDS: NICOTINE POLACRILEX 2 MG GUM BUC PRN ×2 (06:49→09:11)
[2019-03-11] MEDS: METHOCARBAMOL 500 MG TABLET PO PRN (06:49)
[2019-03-11] MEDS: diazePAM 5 MG TABLET PO PRN (06:49)
--- NOTE | 2019-03-11 08:33 | DS ---
[facility] Detox Discharge Summary Admission Date: 03/07/19 Discharge Date: 03/11/19 - History Present History: Alcohol Dependence, Cannabis Dependence, Cocaine Dependence, Opioid Dependence - Physical Exam Results Vital Signs: Vital Signs Temperature 97.2 F L 03/11/19 07:40 Pulse Rate 72 03/11/19 07:40 Respiratory Rate 18 03/11/19 07:40 Blood Pressure 140/66 03/11/19 07:40 O2 Sat by Pulse Oximetry (%) Pertinent Admission Physical Exam Findings: pt arrived in withdrawals Laboratory Tests 03/08/19 03/08/19 03/08/19 08:45 08:45 08:45 WBC 7.9 RBC 4.27 Hgb 13.4 Hct 38.8 MCV 91.0 MCH 31.4 MCHC 34.6 RDW 12.8 Plt Count 267 MPV 9.2 D Sodium 141 Potassium 4.4 Chloride 106 Carbon Dioxide 28 Anion Gap 7 L BUN 12.4 Creatinine 1.3 Est GFR (CKD-EPI)AfAm 84.86 Est GFR (CKD-EPI)NonAf 73.22 Random Glucose 92 Calcium 9.0 Total Bilirubin 0.2 AST 6 L ALT 18 Alkaline Phosphatase 87 Total Protein 6.6 Albumin 3.6 RPR Titer Nonreactive pt is aaox3 ambulating no s/s of withdrawals - Treatment Hospital Course: Detox Protocol Followed, Detoxed Safely, Responded well, Discharged Condition Good, Rehab Referral Accepted Patient has Accepted a Rehab Referral to: referral provided - Medication Discharge Medications: Ambulatory Orders NK [No Known Home Medication] 02/17/17 - Diagnosis (1) Alcohol abuse Current Visit: Yes Status: Acute (2) Opioid dependence with withdrawal Current Visit: Yes Status: Chronic (3) Substance-induced sleep disorder Current Visit: Yes Status: Acute (4) Eczema Current Visit: Yes Status: Chronic Qualifiers: Eczema type: unspecified Qualified Code(s): L30.9 - Dermatitis, unspecified (5) History of abnormal electrocardiogram Current Visit: Yes Status: Chronic (6) IVDU (intravenous drug user) Current Visit: Yes Status: Chronic (7) Nicotine dependence Current Visit: Yes Status: Chronic Qualifiers: Nicotine product type: cigarettes Substance use status: uncomplicated Qualified Code(s): F17.210 - Nicotine dependence, cigarettes, uncomplicated (8) Cocaine dependence, uncomplicated Current Visit: No Status: Acute (9) Depression (emotion) Current Visit: No Status: Acute Qualifiers: Depression Type: unspecified Qualified Code(s): F32.9 - Major depressive disorder, single episode, unspecified - AMA Did Patient Leave Against Medical Advice: No
[2019-03-11] MEDS: NICOTINE 14 MG/24 HOURS TOPICAL PATCH TD SCH (09:10)
[2019-03-11] MEDS: PRENATAL VITAMINS W/ FOLIC ACID TABLET (FP) PO SCH (09:10)
[2019-03-11 10:20] VITALS: BP 128/58; PULSE 93; TEMP 98.1
[2019-03-11 10:33] LABS: PH,URINE 6.5 (5.0-8.0); URINE APPEARANCE CLEAR; URINE BILIRUBIN NEGATIVE (NEGATIVE); URINE COLOR YELLOW; URINE GLUCOSE (UA) NEGATIVE (NEGATIVE); URINE KETONE NEGATIVE (NEGATIVE); URINE LEUK ESTERASE NEGATIVE (NEGATIVE); URINE NITRITE NEGATIVE (NEGATIVE); URINE PROTEIN NEGATIVE (NEGATIVE); URINE UROBILINOGEN 0.2 mg/dL (0.2-1.0)
== END 2019-03-11 10:06 | disposition home or self-care (01) | DRG 773 ==
LOC: YASAS 17:01 → Y6N 22:42
PROVIDERS: ADMIT Surgery; ATTEND Surgery
PROC: HZ2ZZZZ Detoxification Services for Substance Abuse Treatment (ICD-10-PCS; principal; 2019-03-07)
DX: F11.23 Opioid dependence with withdrawal (principal); F10.230 Alcohol dependence with withdrawal, uncomplicated; F14.20 Cocaine dependence, uncomplicated; F12.20 Cannabis dependence, uncomplicated; F17.210 Nicotine dependence, cigarettes, uncomplicated; F19.282 Other psychoactive substance dependence with psychoactive substance-induced sleep disorder; F34.1 Dysthymic disorder; E86.0 Dehydration; L30.9 Dermatitis, unspecified; R94.31 Abnormal electrocardiogram [ECG] [EKG]
CPT/HCPCS: 36415; 80053; 81003; 85027; 86593; 93005; 93010

== ENCOUNTER 2019-06-16 09:39 | Inpatient (IN) | payer OTHER ==
[2019-06-16 10:09] VITALS: BMI 21.6
--- NOTE | 2019-06-16 12:28 | HP ---
COWS - Scale Resting Pulse: 1= [place] 81-100 Sweatin=Flushed/Facial Moisture Restless Observation: 1= Difficult to Sit Still Pupil Size: 0= Normal to Room Light Bone or Joint Aches: 2= Severe Diffuse Aches Runny Nose/ Eye Tearin= Runny Nose/Eyes GI Upset > 30mins: 1= Stomach Cramp Tremor Observation: 2= Slight Tremor Visible Yawning Observation: 2= >3x During Session Anxiety or Irritability: 2=Irritable/Anxious Goose Flesh Skin: 3=Piloerection COWS Score: 18 CIWA Score - Admission Criteria OASAS Guidelines: Admission for Medically Managed Detox: Requires at least one of the followin. CIWA greater than 12 2. Seizures within the past 24 hours 3. Delirium tremens within the past 24 hours 4. Hallucinations within the past 24 hours 5. Acute intervention needed for co occurring medical disorder 6. Acute intervention needed for co occurring psychiatric disorder 7. Severe withdrawal that cannot be handled at a lower level of care (continued vomiting, continued diarrhea, abnormal vital signs) requiring intravenous medication and/or fluids 8. Admitting History and Physical - Primary Care Physician PCP: Dr. Marcos Herrera - Admission Chief Complaint: I am here for detox. History of Present Illness: Pt is a 28yrold male with a history of heroin dependence seeking detox for treatment. History Source: Patient Limitations to Obtaining History: No Limitations - Past Surgical History Past Surgical History: Yes: None - Smoking History Smoking history: Current every day smoker Have you smoked in the past 12 months: Yes Aproximately how many cigarettes per day: 10 - Alcohol/Substance Use History of Substance Use: reports: Heroin - Social History Usual Living Arrangement: Yes: With Parent Do you think of yourself as: Straight/Heterosexual ADL: Independent History of Recent Travel: No Admission ROS BHS - HPI Chief Complaint: I need help to get clean and sober again. Allergies/Adverse Reactions: Allergies Allergy/AdvReac Type Severity Reaction Status Date / Time No Known Allergies Allergy Verified 06/16/19 10:02 History of Present Illness: pt is a 28yrold male with a history of heroin dependence seeking detox for treatment. Exam Limitations: No Limitations - Ebola screening Have you traveled outside of the country in the last 21 days: No Have you had contact with anyone from an Ebola affected area: No Have you been sick,other than usual withdrawal symptoms: No Do you have a fever: No - Review of Systems Constitutional: Chills, Diaphoresis, Night Sweats, Changes in sleep, Unintentional Wgt. Loss EENT: reports: No Symptoms Reported Respiratory: reports: No Symptoms reported Cardiac: reports: No Symptoms Reported GI: reports: Poor Appetite, Poor Fluid Intake : reports: No Symptoms Reported Musculoskeletal: reports: No Symptoms Reported Integumentary: reports: Flushing, Sweating Neuro: reports: Headache, Tingling, Tremors Endocrine: reports: Excessive Sweating, Flushing, Intolerance to Cold, Intolerance to Heat Hematology: reports: No Symptoms Reported Psychiatric: reports: Judgement Intact, Mood/Affect Appropiate, Orientated x3, Agitated, Anxious Other Systems: Reviewed and Negative Patient History - Patient Medical History Hx Anemia: No Hx Asthma: No Hx Chronic Obstructive Pulmonary Disease (COPD): No Hx Cancer: No Hx Cardiac Disorders: No Hx Congestive Heart Failure: No Hx Hypertension: No Hx Hypercholesterolemia: No Hx Pacemaker: No HX Cerebrovascular Accident: No Hx Seizures: No Hx Dementia: No Hx Diabetes: No Hx Gastrointestinal Disorders: No Hx Liver Disease: No Hx Genitourinary Disorders: No Hx Sexually Transmitted Disorders: No Hx Renal Disease (ESRD): No Hx Thyroid Disease: No Hx Human Immunodeficiency Virus (HIV): No (Never Tested.) Hx Hepatitis C: No (Never Tested.) Hx Depression: No Hx Suicide Attempt: No (PATIENT DENIES CURRENT SI / HI.) Hx Bipolar Disorder: No Hx Schizophrenia: No - Patient Surgical History Past Surgical History: No Hx Neurologic Surgery: No Hx Cataract Extraction: No Hx Cardiac Surgery: No Hx Lung Surgery: No Hx Breast Surgery: No Hx Breast Biopsy: No Hx Abdominal Surgery: No Hx Appendectomy: No Hx Cholecystectomy: No Hx Genitourinary Surgery: No Hx Section: No Hx Orthopedic Surgery: No Anesthesia Reaction: No - PPD History Previous Implant?: Yes Date: 03/09/19 PPD to be Administered?: No - Reproductive History Patient is a Female of Child Bearing Age (11 -55 yrs old): No - Smoking Cessation Smoking history: Current every day smoker Have you smoked in the past 12 months: Yes Aproximately how many cigarettes per day: 10 Cigars Per Day: 0 Hx Chewing Tobacco Use: No Initiated information on smoking cessation: Yes 'Breaking Loose' booklet given: 06/16/19 - Substance & Tx. History Hx Alcohol Use: No Hx Substance Use: Yes Substance Use Type: Cocaine, Heroin Hx Substance Use Treatment: Yes (last detox [facility] 2018) - Substances abused Heroin Substance route: Injection Frequency: Daily Amount used: 15 to 20 bags Age of first use: 24 Date of last use: 06/15/19 Cocaine Substance route: Injection Frequency: 1-2 times per week Amount used: $20 Age of first use: 19 Date of last use: 06/12/19 Admission Physical Exam [facility] - Vital Signs Vital Signs: Vital Signs - 24 hr 06/16/19 10:00 Temperature 97.5 F L Pulse Rate 83 Respiratory 18 Rate Blood Pressure 143/71 - Physical General Appearance: Yes: Appropriately Dressed, Moderate Distress, Tremorous, Irritable, Sweating, Anxious HEENTM: Yes: Normal Voice, Nasal Congestion, Rhinorrhea Respiratory: Yes: Lungs Clear, Normal Breath Sounds, No Respiratory Distress Neck: Yes: No masses,lesions,Nodules Breast: Yes: Within Normal Limits Cardiology: Yes: Regular Rhythm, Regular Rate, S1, S2 Abdominal: Yes: Normal Bowel Sounds, Non Tender, Soft Genitourinary: Yes: Within Normal Limits Back: Yes: Normal Inspection Musculoskeletal: Yes: full range of Motion, Back pain Extremities: Yes: Normal Capillary Refill, Normal Inspection, Tremors Neurological: Yes: Fully Oriented, Alert, Normal Response Integumentary: Yes: Normal Color, Diaphoresis, Track Huerta Lymphatic: Yes: Within Normal Limits - Diagnostic (1) Cocaine dependence, uncomplicated Current Visit: Yes Status: Chronic (2) Substance-induced sleep disorder Current Visit: No Status: Acute (3) History of abnormal electrocardiogram Current Visit: No Status: Chronic (4) IVDU (intravenous drug user) Current Visit: Yes Status: Chronic (5) Nicotine dependence Current Visit: Yes Status: Chronic Qualifiers: Nicotine product type: cigarettes Substance use status: uncomplicated Qualified Code(s): F17.210 - Nicotine dependence, cigarettes, uncomplicated (6) Opioid dependence with withdrawal Current Visit: Yes Status: Chronic Cleared for Admission [facility] - Detox or Rehab [facility] Level of Care: Medically Managed Detox Regimen/Protocol: Methadone Claeared for Rehab Admission: No Breathalyzer - Breathalyzer Breathalyzer: 0 Urine Drug Screen - Test Device Lot number: [id number] Expiration date: 01/05/21 - Control Is test valid?: Yes - Results Drug screen NEGATIVE: No Urine drug screen results: MOP-Opiates, BUP-Suboxone Inpatient Rehab Admission - Rehab Decision to Admit Inpatient rehab admission?: No
[2019-06-16] MEDS ORDERED: BISMUTH SUBSALICYLATE 262 MG/15 ML BTL PO PRN (12:37)
[2019-06-16] MEDS ORDERED: MAGNESIUM CITRATE 300 ML BOTTLE PO PRN (12:37)
[2019-06-16] MEDS ORDERED: ONDANSETRON *ODT* 4 MG TABLET SL PRN (12:37)
[2019-06-16] MEDS ORDERED: ACETAMINOPHEN 325 MG TABLET (FP) PO PRN ×2 (12:37→12:57)
[2019-06-16] MEDS ORDERED: IBUPROFEN 400 MG TABLET (FP) PO PRN (12:37)
[2019-06-16] MEDS ORDERED: hydrOXYzine PAMOATE 25 MG CAPSULE (FP) PO PRN (12:37)
[2019-06-16] MEDS ORDERED: MELATONIN 5 MG TABLETS PO PRN (12:37)
[2019-06-16] MEDS ORDERED: MENTHOL/PHENOL 1 EACH UD MM PRN (12:37)
[2019-06-16] MEDS ORDERED: MAG HYDROX/AL HYDROX/SIMETH 30 ML UNIT-DOSE CUP PO PRN (12:37)
[2019-06-16] MEDS ORDERED: P-EPHED 60MG/TRIPROLIDI 2.5MG TABLET PO PRN (12:37)
[2019-06-16] MEDS ORDERED: MAGNESIUM HYDROX 2400MG/30ML ORAL SUSPENSION 30 ML CUP PO PRN (12:37)
[2019-06-16] MEDS ORDERED: METHADONE HCL 10 MG TABLET (FOR DETOX USE ONLY) PO ONE (12:55)
[2019-06-16] MEDS: METHOCARBAMOL 500 MG TABLET PO PRN (13:35)
[2019-06-16] MEDS: diazePAM 5 MG TABLET PO PRN ×3 (14:10→23:07)
[2019-06-16] MEDS: NICOTINE POLACRILEX 4 MG GUM BUC PRN ×3 (14:10→18:54)
--- NOTE | 2019-06-16 14:35 | EKG ---
Test Reason : Blood Pressure : / mmHG Vent. Rate : 067 BPM Atrial Rate : 067 BPM P-R Int : 136 ms QRS Dur : 092 ms QT Int : 432 ms P-R-T Axes : 050 083 064 degrees QTc Int : 456 ms SINUS RHYTHM WITH OCCASIONAL PREMATURE VENTRICULAR COMPLEXES MINIMAL VOLTAGE CRITERIA FOR LVH, MAY BE NORMAL VARIANT BORDERLINE ECG WHEN COMPARED WITH ECG OF 07-MAR-2019 22:51, PREMATURE VENTRICULAR COMPLEXES ARE NOW PRESENT Confirmed by RAVEN ALMONTE, RIRI ([id number]) on 06/16/2019 2:35:19 PM Referred By: Confirmed By:RIRI CARBAJAL MD
[2019-06-16 17:22] LABS: HEMATOCRIT 42.5 % (35.4-49); HEMOGLOBIN 14.1 GM/dL (11.7-16.9); MCH 30.1 pg (25.7-33.7); MCHC 33.3 g/dl (32.0-35.9); MEAN CELL VOLUME 90.4 fl (80-96); MEAN PLT VOLUME 9.7 fl (7.5-11.1); PLATELET COUNT 335 K/MM3 (134-434); WHITE BLOOD COUNT 8.5 K/mm3 (4.0-10.0)
[2019-06-16 17:56] LABS: ALBUMIN 4.1 g/dl (3.4-5.0); BILIRUBIN,TOTAL 0.4 mg/dL (0.2-1); CALCIUM 9.4 mg/dL (8.5-10.1); CREATININE 1.1 mg/dL (0.55-1.3); POTASSIUM 4.6 mmol/L (3.5-5.1); TOT PROT 7.8 g/dl (6.4-8.2)
[2019-06-16] MEDS: cloNIDine HCL 0.1 MG TABLET PO PRN (18:53)
[2019-06-16] MEDS: THIAMINE HCL 100 MG TABLET (FP) PO SCH (23:09)
[2019-06-17] MEDS: NICOTINE POLACRILEX 4 MG GUM BUC PRN ×4 (08:56→18:50)
[2019-06-17] MEDS ORDERED: METHADONE HCL 10 MG TABLET (FOR DETOX USE ONLY) ONE (09:07)
[2019-06-17] MEDS ORDERED: METHADONE HCL 5 MG TABLET (FOR DETOX USE ONLY) ONE (09:07)
[2019-06-17] MEDS: PRENATAL VITAMINS W/ FOLIC ACID TABLET (FP) PO SCH (09:08)
[2019-06-17] MEDS: diazePAM 5 MG TABLET PO PRN ×4 (09:08→21:56)
[2019-06-17] MEDS: METHOCARBAMOL 500 MG TABLET PO PRN ×3 (09:09→21:56)
[2019-06-17] MEDS ORDERED: METHADONE (DETOX) 20 MG, METHADONE (DETOX) 5 MG PO ONE (10:00)
--- NOTE | 2019-06-17 13:39 | PN ---
BHS COWS - Scale Resting Pulse: 0= [place] 80 or Below Sweatin=Flushed/Facial Moisture Restless Observation: 1= Difficult to Sit Still Pupil Size: 0= Normal to Room Light Bone or Joint Aches: 2= Severe Diffuse Aches Runny Nose/ Eye Tearin= Runny Nose/Eyes GI Upset > 30mins: 1= Stomach Cramp Tremor Observation of Outstretched Hands: 1= Tremor [place], Not Seen Yawning Observation: 1= 1-2x During Session Anxiety or Irritability: 2=Irritable/Anxious Goose Flesh Skin: 0=Smooth Skin COWS Score: 12 S Progress Note (SOAP) Subjective: c/o of abdominal cramps, chills, sweats, interrupted sleep Objective: 06/17/19 13:37 Vital Signs Temperature 98.2 F 06/17/19 09:54 Pulse Rate 71 06/17/19 09:54 Respiratory Rate 18 06/17/19 09:54 Blood Pressure 117/69 06/17/19 09:54 O2 Sat by Pulse Oximetry (%) Laboratory Last Values WBC 8.5 K/mm3 (4.0-10.0) 06/16/19 13:20 RBC 4.70 M/mm3 (4.00-5.60) 06/16/19 13:20 Hgb 14.1 GM/dL (11.7-16.9) 06/16/19 13:20 Hct 42.5 % (35.4-49) 06/16/19 13:20 MCV 90.4 fl (80-96) 06/16/19 13:20 MCH 30.1 pg (25.7-33.7) 06/16/19 13:20 MCHC 33.3 g/dl (32.0-35.9) 06/16/19 13:20 RDW 14.0 % (11.9-15.9) 06/16/19 13:20 Plt Count 335 K/MM3 (134-434) D 06/16/19 13:20 MPV 9.7 fl (7.5-11.1) 06/16/19 13:20 Sodium 140 mmol/L (136-145) 06/16/19 13:20 Potassium 4.6 mmol/L (3.5-5.1) 06/16/19 13:20 Chloride 105 mmol/L (98-107) 06/16/19 13:20 Carbon Dioxide 30 mmol/L (21-32) 06/16/19 13:20 Anion Gap 5 MMOL/L (8-16) L 06/16/19 13:20 BUN 13.0 mg/dL (7-18) 06/16/19 13:20 Creatinine 1.1 mg/dL (0.55-1.3) 06/16/19 13:20 Est GFR (CKD-EPI)AfAm 103.85 06/16/19 13:20 Est GFR (CKD-EPI)NonAf 89.61 06/16/19 13:20 Random Glucose 84 mg/dL (74-106) 06/16/19 13:20 Calcium 9.4 mg/dL (8.5-10.1) 06/16/19 13:20 Total Bilirubin 0.4 mg/dL (0.2-1) 06/16/19 13:20 AST 14 U/L (15-37) L 06/16/19 13:20 ALT 18 U/L (13-61) 06/16/19 13:20 Alkaline Phosphatase 99 U/L (45-117) 06/16/19 13:20 Total Protein 7.8 g/dl (6.4-8.2) 06/16/19 13:20 Albumin 4.1 g/dl (3.4-5.0) 06/16/19 13:20 RPR Titer Nonreactive (NONREACTIVE) 06/16/19 13:20 Assessment: 06/17/19 13:38 Aox3 no acute distress, anxious full ROM no gait disturbance no abdominal tenderness withdrawal sx Plan: increase fluids continue detox continue to monitor
[2019-06-17] MEDS: cloNIDine HCL 0.1 MG TABLET PO PRN (13:44)
[2019-06-17] MEDS: THIAMINE HCL 100 MG TABLET (FP) PO SCH (21:56)
[2019-06-18] MEDS ORDERED: METHADONE HCL 10 MG TABLET (FOR DETOX USE ONLY) PO ONE (10:00)
[2019-06-18] MEDS: PRENATAL VITAMINS W/ FOLIC ACID TABLET (FP) PO SCH (10:16)
[2019-06-18] MEDS: METHOCARBAMOL 500 MG TABLET PO PRN ×2 (10:20→19:12)
[2019-06-18] MEDS: diazePAM 5 MG TABLET PO PRN ×4 (10:20→22:52)
--- NOTE | 2019-06-18 12:46 | PN ---
BHS COWS - Scale Resting Pulse: 1= [place] 81-100 Sweatin= Chills/Flushing Restless Observation: 1= Difficult to Sit Still Pupil Size: 0= Normal to Room Light Bone or Joint Aches: 4=Acute Joint/Muscle Pain Runny Nose/ Eye Tearin= None GI Upset > 30mins: 1= Stomach Cramp Tremor Observation of Outstretched Hands: 1= Tremor [place], Not Seen Yawning Observation: 0= None Anxiety or Irritability: 1=Feels Anxious/Irritable Goose Flesh Skin: 0=Smooth Skin COWS Score: 10 BHS Progress Note (SOAP) Subjective: Sweats, bodyaches and stomach cramping. Objective: 06/18/19 12:45 Vital Signs Temperature 97.6 F 06/18/19 09:26 Pulse Rate 76 06/18/19 09:26 Respiratory Rate 18 06/18/19 09:26 Blood Pressure 132/64 06/18/19 09:26 O2 Sat by Pulse Oximetry (%) Laboratory Tests 06/16/19 06/16/19 06/16/19 13:20 13:20 13:20 WBC 8.5 RBC 4.70 Hgb 14.1 Hct 42.5 MCV 90.4 MCH 30.1 MCHC 33.3 RDW 14.0 Plt Count 335 D MPV 9.7 Sodium 140 Potassium 4.6 Chloride 105 Carbon Dioxide 30 Anion Gap 5 L BUN 13.0 Creatinine 1.1 Est GFR (CKD-EPI)AfAm 103.85 Est GFR (CKD-EPI)NonAf 89.61 Random Glucose 84 Calcium 9.4 Total Bilirubin 0.4 AST 14 L ALT 18 Alkaline Phosphatase 99 Total Protein 7.8 Albumin 4.1 RPR Titer Nonreactive 06/18/19 12:47 Labs noted Aaox3 Ambulating No acute distress noted Assessment: 06/18/19 12:48 Withdrawals present. Plan: Continue detox. Encouraged hydration.
[2019-06-18] MEDS: cloNIDine HCL 0.1 MG TABLET PO PRN ×2 (14:30→19:14)
[2019-06-18] MEDS: NICOTINE POLACRILEX 4 MG GUM BUC PRN ×2 (14:31→17:56)
[2019-06-18] MEDS: THIAMINE HCL 100 MG TABLET (FP) PO SCH (22:52)
[2019-06-19] MEDS: METHOCARBAMOL 500 MG TABLET PO PRN (07:01)
[2019-06-19] MEDS: diazePAM 5 MG TABLET PO PRN (07:01)
[2019-06-19 09:25] VITALS: BP 135/60; PULSE 78; TEMP 97.9
[2019-06-19] MEDS ORDERED: METHADONE HCL 5 MG TABLET (FOR DETOX USE ONLY) ONE (09:34)
[2019-06-19] MEDS ORDERED: METHADONE HCL 10 MG TABLET (FOR DETOX USE ONLY) ONE (09:35)
[2019-06-19] MEDS ORDERED: METHADONE (DETOX) 10 MG, METHADONE (DETOX) 5 MG PO ONE (10:00)
[2019-06-19] MEDS: PRENATAL VITAMINS W/ FOLIC ACID TABLET (FP) PO SCH (10:25)
--- NOTE | 2019-06-19 12:02 | DS ---
[facility] Detox Discharge Summary Admission Date: 06/16/19 Discharge Date: 06/19/19 - History Present History: Cocaine Dependence, Opioid Dependence Additional Comments: Patient demanded to leave. As per patient, he has family issues to attend to. Patient encouraged to complete detox but he demanded to leave AMA. Patient instructed to call 911 BRANDON and to see his PCP within 3 days. Patient left in stable condition. Pertinent Past History: Nicotine dependence Cocaine use disorder Opioid dependence - Physical Exam Results Vital Signs: Vital Signs Temperature 97.9 F 06/19/19 09:24 Pulse Rate 78 06/19/19 09:24 Respiratory Rate 18 06/19/19 09:24 Blood Pressure 135/60 06/19/19 09:24 O2 Sat by Pulse Oximetry (%) Pertinent Admission Physical Exam Findings: Withdrawal sxs Laboratory Tests 06/16/19 06/16/19 06/16/19 13:20 13:20 13:20 WBC 8.5 RBC 4.70 Hgb 14.1 Hct 42.5 MCV 90.4 MCH 30.1 MCHC 33.3 RDW 14.0 Plt Count 335 D MPV 9.7 Sodium 140 Potassium 4.6 Chloride 105 Carbon Dioxide 30 Anion Gap 5 L BUN 13.0 Creatinine 1.1 Est GFR (CKD-EPI)AfAm 103.85 Est GFR (CKD-EPI)NonAf 89.61 Random Glucose 84 Calcium 9.4 Total Bilirubin 0.4 AST 14 L ALT 18 Alkaline Phosphatase 99 Total Protein 7.8 Albumin 4.1 RPR Titer Nonreactive Labs reviewed - Medication Discharge Medications: Ambulatory Orders NK [No Known Home Medication] 02/17/17 - Diagnosis (1) Cocaine dependence, uncomplicated Status: Chronic (2) Nicotine dependence Status: Chronic Qualifiers: Nicotine product type: cigarettes Substance use status: uncomplicated Qualified Code(s): F17.210 - Nicotine dependence, cigarettes, uncomplicated (3) Opioid dependence with withdrawal Status: Acute - AMA Did Patient Leave Against Medical Advice: Yes (Instructed to call 911 BRANDON if sick/withdrawal sxs)
[2019-06-20] MEDS ORDERED: METHADONE HCL 10 MG TABLET (FOR DETOX USE ONLY) PO ONE (10:00)
[2019-06-21] MEDS ORDERED: METHADONE HCL 5 MG TABLET (FOR DETOX USE ONLY) PO ONE (06:00)
== END 2019-06-19 11:17 | disposition left against medical advice (07) | DRG 770 ==
LOC: YASAS 09:39 → Y6N 12:50
PROVIDERS: ADMIT Allergy & Immunology; ATTEND Allergy & Immunology
PROC: HZ2ZZZZ Detoxification Services for Substance Abuse Treatment (ICD-10-PCS; principal; 2019-06-16)
DX: F11.23 Opioid dependence with withdrawal (principal); F14.20 Cocaine dependence, uncomplicated; F17.210 Nicotine dependence, cigarettes, uncomplicated; F19.282 Other psychoactive substance dependence with psychoactive substance-induced sleep disorder; R94.31 Abnormal electrocardiogram [ECG] [EKG]; Z86.79 Personal history of other diseases of the circulatory system
CPT/HCPCS: 36415; 80053; 85027; 86593; 93005; 93010; J0735

== ENCOUNTER 2020-02-08 09:12 | Inpatient (IN) | payer OTHER ==
--- NOTE | 2020-02-08 09:59 | BHS.RME ---
Substance Use & Tx History - Substance Use History Heroin Substance amount: 10-15 bags Frequency of use: Daily Substance route: Injection (ex: intravenous or skin popping) Date of Last Use: 02/08/20 Cocaine- Powder Substance amount: $100-200 Frequency of use: Daily Substance route: Injection (ex: intravenous or skin popping) Date of Last Use: 02/07/20 Marijuana/Hashish Substance amount: 1 blunt Frequency of use: Less than 3 times per week Substance route: Smoking Date of Last Use: 02/08/20 Other Opiates/Synthetics Substance amount: 1/2 pack Frequency of use: Daily Substance route: Smoking Date of Last Use: 02/08/20 Physical/Psych/Mental Status - Behavior General Behavior: Increased activity (restlessness, agitation) Eye Contact: Normal - Cooperativeness Cooperativeness: Cooperative - Thinking Thought Processes: Tight, Logical, Goal Directed - Physical Health Problems Is patient presently having any pain?: No Does patient presently have any injuries (include location): No Does patient currently have a fever: No Is patient : No COWS - Scale Resting Pulse: 1= [place] 81-100 Sweatin= Chills/Flushing Restless Observation: 1= Difficult to Sit Still Pupil Size: 1= Pupils >than Normal Bone or Joint Aches: 0= None Runny Nose/ Eye Tearin= None GI Upset > 30mins: 0= None Tremor Observation: 1= Tremor [place], Not Seen Yawning Observation: 1= 1-2x During Session Anxiety or Irritability: 1=Feels Anxious/Irritable Goose Flesh Skin: 0=Smooth Skin COWS Score: 7
[2020-02-08 14:06] VITALS: BMI 22.1
--- NOTE | 2020-02-08 14:10 | HP ---
COWS - Scale Resting Pulse: 1= [place] 81-100 Sweatin= Chills/Flushing Restless Observation: 1= Difficult to Sit Still Pupil Size: 1= Pupils >than Normal Bone or Joint Aches: 0= None Runny Nose/ Eye Tearin= None GI Upset > 30mins: 0= None Tremor Observation: 1= Tremor [place], Not Seen Yawning Observation: 1= 1-2x During Session Anxiety or Irritability: 1=Feels Anxious/Irritable Goose Flesh Skin: 0=Smooth Skin COWS Score: 7 CIWA Score Nausea/Vomitin-No Nausea/No Vomiting Muscle Tremors: 2 Anxiety: 2 Agitation: 0-Normal Activity Paroxysmal Sweats: 2 Orientation: 0-Oriented Tacttile Disturbances: 0-None Auditory Disturbances: 0-None Visual Disturbances: 0-None Headache: 1-Very Mild CIWA-Ar Total Score: 7 - Admission Criteria OASAS Guidelines: Admission for Medically Managed Detox: Requires at least one of the followin. CIWA greater than 12 2. Seizures within the past 24 hours 3. Delirium tremens within the past 24 hours 4. Hallucinations within the past 24 hours 5. Acute intervention needed for co occurring medical disorder 6. Acute intervention needed for co occurring psychiatric disorder 7. Severe withdrawal that cannot be handled at a lower level of care (continued vomiting, continued diarrhea, abnormal vital signs) requiring intravenous medication and/or fluids 8. Admitting History and Physical - Admission Chief Complaint: Mr. Benz is a 29 yo gentleman who presents to [facility] requesting detox from heroin. History of Present Illness: Mr. Benz is a 29 yo gentleman who presents to [facility] requesting detox from heroin. He was last here between November 11 and November 13, left AMA, stating he was "stupid" and the dose of methadone was not enough. He states he would like to try Vivitrol. His longest abstinence was 8 mos. He states tried Suboxone, but did not stop his cravings and continued to use heroin. PMH: none PSH: none Psych: ADHD SOC: lives with family Legal: none Substance Use History Heroin Substance amount: 10-15 bags Frequency of use: Daily Substance route: Injection (ex: intravenous or skin popping) Date of Last Use: 02/08/20 First use age 25 y Hx of OD, one, last was 3 y ago. No Narcan kit at home. Cocaine- Powder Substance amount: $100-200 Frequency of use: Daily Substance route: Injection (ex: intravenous or skin popping) Date of Last Use: 02/07/20 First use age 22 y Marijuana/Hashish Substance amount: 1 blunt Frequency of use: Less than 3 times per week Substance route: Smoking Date of Last Use: 02/08/20 First use age 16 y Nicotine Substance amount: 1/2 pack Frequency of use: Daily Substance route: Smoking Date of Last Use: 02/08/20 First use age 15 y Benzo: Klonopin: 2mg tabs x 3-4 tabs daily. First use age 19 y. Last use yesterday. Meets criteria for admission due to recent use of opiate masks full withdrawal symptoms. Patient Name: Bryan Benz Date: 1990 Address: [address] [place] [address] Sex: Male Rx Written Rx Dispensed Drug Quantity Days Supply Prescriber Name 08/05/2019 08/09/2019 buprenorphine-naloxone 12-3 mg sl film 7 7 Marcial Grullon MD 07/12/2019 07/12/2019 buprenorphine-naloxone 4-1 mg sl film 90 30 Jace Borges B, MD 06/28/2019 06/28/2019 buprenorphine-naloxone 4-1 mg sl film 15 15 Jace Borges B, MD Date: 1990 Address: [address] [place] [address] Sex: Male Rx Written Rx Dispensed Drug Quantity Days Supply Prescriber Name 12/14/2019 12/15/2019 buprenorphine-naloxone 2-0.5 mg sl tablet 36 9 Alannah Cardoso 12/14/2019 12/14/2019 buprenorphine-naloxone 2-0.5 mg sl tablet 16 2 Alannah Cardoso 12/14/2019 12/14/2019 chlordiazepoxide 25 mg capsule 22 4 Alannah Cardoso History Source: Patient Limitations to Obtaining History: No Limitations - Past Surgical History Past Surgical History: Yes: None - Smoking History Smoking history: Current every day smoker Have you smoked in the past 12 months: Yes Aproximately how many cigarettes per day: 10 - Alcohol/Substance Use Hx Alcohol Use: No History of Substance Use: reports: Cocaine, Heroin - Social History ADL: Independent Occupation: unemployed History of Recent Travel: No Admission ROS S - HPI Allergies/Adverse Reactions: Allergies Allergy/AdvReac Type Severity Reaction Status Date / Time No Known Allergies Allergy Verified 02/08/20 13:59 Exam Limitations: No Limitations - Ebola screening Have you traveled outside of the country in the last 21 days: No Have you been sick,other than usual withdrawal symptoms: No Do you have a fever: No - Review of Systems Constitutional: Changes in sleep (difficulty falling asleep and staying asleep), Unintentional Wgt. Loss (20 lbs lost in 4 mos) EENT: reports: No Symptoms Reported Respiratory: reports: No Symptoms reported Cardiac: reports: No Symptoms Reported GI: reports: No Symptoms Reported : reports: No Symptoms Reported Musculoskeletal: reports: No Symptoms Reported Integumentary: reports: No Symptoms Reported Neuro: reports: No Symptoms reported Endocrine: reports: No Symptoms Reported Hematology: reports: No Symptoms Reported Psychiatric: reports: Anxious Patient History - Patient Medical History Hx Anemia: No Hx Asthma: No Hx Chronic Obstructive Pulmonary Disease (COPD): No Hx Cancer: No Hx Cardiac Disorders: No Hx Congestive Heart Failure: No Hx Hypertension: No Hx Hypercholesterolemia: No Hx Pacemaker: No HX Cerebrovascular Accident: No Hx Seizures: No Hx Dementia: No Hx Diabetes: No Hx Gastrointestinal Disorders: No Hx Liver Disease: No Hx Genitourinary Disorders: No Hx Sexually Transmitted Disorders: No Hx Renal Disease (ESRD): No Hx Thyroid Disease: No Hx Human Immunodeficiency Virus (HIV): No (negative 06/2019) Hx Hepatitis C: No (Never Tested.) Hx Depression: No Hx Suicide Attempt: No Hx Bipolar Disorder: No Hx Schizophrenia: No - Patient Surgical History Past Surgical History: No Hx Neurologic Surgery: No Hx Cataract Extraction: No Hx Cardiac Surgery: No Hx Lung Surgery: No Hx Breast Surgery: No Hx Breast Biopsy: No Hx Abdominal Surgery: No Hx Appendectomy: No Hx Cholecystectomy: No Hx Genitourinary Surgery: No Hx Section: No Hx Orthopedic Surgery: No Anesthesia Reaction: No - PPD History Date: 03/09/19 Results: 0 mm - Smoking Cessation Smoking history: Current every day smoker Have you smoked in the past 12 months: Yes Aproximately how many cigarettes per day: 10 Cigars Per Day: 0 Hx Chewing Tobacco Use: No Initiated information on smoking cessation: Yes 'Breaking Loose' booklet given: 02/08/20 - Substances abused Heroin Other (specify): heroin Substance route: Injection Frequency: Daily Amount used: 10-15 bags Age of first use: 25 Date of last use: 02/08/20 Benzodiazepine (Klonopin) Other (specify): Klonopin Substance route: Oral Frequency: Daily Amount used: 3-4 pills of 2 mg Age of first use: 19 Date of last use: 02/07/20 Cocaine Substance route: Injection Frequency: Daily Amount used: $100-$200 Age of first use: 22 Date of last use: 02/08/20 Marijuana/Hashish Substance route: Smoking Frequency: 3-6 times per week Amount used: 1-2 blunt Age of first use: 16 Date of last use: 02/08/[address] [facility] - Physical General Appearance: Yes: No Apparent Distress, Nourished, Appropriately Dressed, Thin HEENTM: Yes: EOMI, Hearing grossly Normal, Normocephalic, Normal Voice Respiratory: Yes: Lungs Clear, No Respiratory Distress, No Accessory Muscle Use Neck: Yes: Within Normal Limits, Supple Breast: Yes: Breast Exam Deferred Cardiology: Yes: Regular Rhythm, Regular Rate Genitourinary: Yes: Other (deferred) Back: Yes: Normal Inspection Musculoskeletal: Yes: Gait Steady Extremities: Yes: Normal Inspection, Non-Tender Neurological: Yes: Normal Mood/Affect, Other (sleepy) Integumentary: Yes: Normal Color, Dry, Track [place] (no sign of infection) - Diagnostic (1) Sedative dependence with current use Current Visit: Yes Status: Acute (2) Cannabis dependence Current Visit: Yes Status: Acute (3) Opioid dependence with withdrawal Current Visit: Yes Status: Acute (4) Cocaine dependence, uncomplicated Current Visit: Yes Status: Acute Cleared for Admission [facility] - Detox or Rehab [facility] Level of Care: Medically Managed Detox Regimen/Protocol: Methadone, Valium Breathalyzer - Breathalyzer Breathalyzer: 0 Urine Drug Screen - Test Device Lot number: [id number] Expiration date: 09/13/21 - Control Is test valid?: Yes - Results Drug screen NEGATIVE: No Urine drug screen results: THC-Marijuana, GAURAV-Cocaine, FEN-Fentanyl, MOP- Opiates, BZO-Benzodiazepines Inpatient Rehab Admission - Rehab Decision to Admit Inpatient rehab admission?: No
[2020-02-08] MEDS ORDERED: MAGNESIUM HYDROX 2400MG/30ML ORAL SUSPENSION 30 ML CUP PO PRN (14:18)
[2020-02-08] MEDS ORDERED: METHADONE HCL 10 MG TABLET (FOR DETOX USE ONLY) PO ONE ×2 (14:18→18:00)
[2020-02-08] MEDS ORDERED: MAG HYDROX/AL HYDROX/SIMETH 30 ML UNIT-DOSE CUP PO PRN (14:18)
[2020-02-08] MEDS ORDERED: ACETAMINOPHEN 325 MG TABLET (FP) PO PRN ×2 (14:18)
[2020-02-08] MEDS ORDERED: MENTHOL/PHENOL 1 EACH UD MM PRN (14:18)
[2020-02-08] MEDS ORDERED: ONDANSETRON *ODT* 4 MG TABLET SL PRN (14:18)
[2020-02-08] MEDS ORDERED: BISMUTH SUBSALICYLATE 524 MG/30 ML UD PO PRN (14:18)
[2020-02-08] MEDS ORDERED: cloNIDine HCL 0.1 MG TABLET PO PRN (14:18)
[2020-02-08] MEDS ORDERED: IBUPROFEN 400 MG TABLET (FP) PO PRN (14:18)
[2020-02-08] MEDS ORDERED: MAGNESIUM CITRATE 300 ML BOTTLE PO PRN (14:18)
--- NOTE | 2020-02-08 14:35 | PN ---
BHS Progress Note Note: Pt drowsy. Will hold on first dose of methadone until 6pm, endorsed to nursing staff to reevaluate before first dose, and if still sleepy,contact the provider this evening.
--- NOTE | 2020-02-08 15:04 | EKG ---
Test Reason : Blood Pressure : / mmHG Vent. Rate : 064 BPM Atrial Rate : 064 BPM P-R Int : 142 ms QRS Dur : 094 ms QT Int : 448 ms P-R-T Axes : 035 076 061 degrees QTc Int : 462 ms NORMAL SINUS RHYTHM NORMAL ECG WHEN COMPARED WITH ECG OF 16-JUN-2019 13:58, PREMATURE VENTRICULAR COMPLEXES ARE NO LONGER PRESENT Confirmed by Dameon Escamilla MD ([id number]) on 02/08/2020 3:04:43 PM Referred By: Confirmed By:Dameon Escamilla MD
[2020-02-08] MEDS: NICOTINE POLACRILEX 2 MG GUM BUC PRN (15:15)
[2020-02-08] MEDS: NICOTINE 14 MG/24 HOURS TOPICAL PATCH TD SCH (15:15)
[2020-02-08 15:25] LABS: HEMATOCRIT 36.7 % (35.4-49); HEMOGLOBIN 12.3 GM/dL (11.7-16.9); MCH 30.6 pg (25.7-33.7); MCHC 33.4 g/dl (32.0-35.9); MEAN CELL VOLUME 91.7 fl (80-96); MEAN PLT VOLUME 10.1 fl (7.5-11.1); PLATELET COUNT 184 K/MM3 (134-434); RDW 13.3 % (11.9-15.9); WHITE BLOOD COUNT 6.5 K/mm3 (4.0-10.0)
[2020-02-08 15:39] LABS: BILIRUBIN,TOTAL 0.4 mg/dL (0.2-1); CALCIUM 9.3 mg/dL (8.5-10.1); CREATININE 1.2 mg/dL (0.55-1.3); POTASSIUM 4.4 mmol/L (3.5-5.1); TOT PROT 6.7 g/dl (6.4-8.2)
[2020-02-08] MEDS ORDERED: hydrOXYzine PAMOATE 25 MG CAPSULE (FP) PO SCH (18:00)
[2020-02-08] MEDS ORDERED: MELATONIN 5 MG TABLETS PO SCH (22:00)
[2020-02-08] MEDS: diazePAM 5 MG TABLET PO SCH (23:16)
[2020-02-08] MEDS: THIAMINE HCL 100 MG TABLET (FP) PO SCH (23:16)
[2020-02-09] MEDS: diazePAM 5 MG TABLET PO SCH ×3 (07:31→23:20)
[2020-02-09] MEDS ORDERED: METHADONE HCL 5 MG TABLET (FOR DETOX USE ONLY) ONE (08:39)
[2020-02-09] MEDS ORDERED: METHADONE HCL 10 MG TABLET (FOR DETOX USE ONLY) ONE (08:39)
[2020-02-09] MEDS ORDERED: METHADONE (DETOX) 20 MG, METHADONE (DETOX) 5 MG PO ONE (10:00)
[2020-02-09] MEDS: NICOTINE 14 MG/24 HOURS TOPICAL PATCH TD SCH (10:05)
[2020-02-09] MEDS: PRENATAL VITAMINS W/ FOLIC ACID TABLET (FP) PO SCH (10:06)
--- NOTE | 2020-02-09 11:28 | CONSULT ---
[facility] Psychiatric Consult - Data Date of interview: 02/09/20 Admission source: Self-referred Identifying data: Mr Benz is a 29 years old single male, unemployed, living with family seeking detox treatment for opioid, cocaine, benzodiazepine and cannabis Substance Abuse History: Reports historyof heroin, covaine, klonopin and marijuana use. Refer to addiction counselor's summary for further information Medical History: Significant for history of withdral siezure. Smokes 10 cigarettes daily Psychiatric History: Patient is known for multiple previous admission to this facility. He reports that his first psychiatric contact occured at age 14 when he was diagnosed with ADHD and prescribed Ritalin then Adderall. Reports taking medication till age 16. Denies previous psychiatric hospitalization or suicidal attempt. However, reports sleeing poorly and requests to be ordered Belsomra 10 mg/hs prn to which he responded well previously. Physical/Sexual Abuse/Trauma History: Denies history of emotional, physical or sexual abuse as well as DV relationship Mental Status Exam - Mental Status Exam Alert and Oriented to: Time, Place, Person Cognitive Function: Fair Patient Appearance: Disheveled Mood: Hopeful, Euthymic Patient Behavior: Cooperative Speech Pattern: Clear Voice Loudness: Normal Thought Process: Intact, Goal Oriented Thought Disorder: Not Present Hallucinations: Denies Suicidal Ideation: Denies Homicidal Ideation: Denies Insight/Judgement: Poor Sleep: Poorly Appetite: Good Muscle strength/Tone: Normal Gait/Station: Normal Psychiatric Findings - Problem List ([place] 1, 2,3) (1) Substance-induced sleep disorder Current Visit: No Status: Acute (2) Opioid dependence with withdrawal Current Visit: Yes Status: Acute (3) Cocaine dependence, uncomplicated Current Visit: Yes Status: Acute (4) Sedative dependence with current use Current Visit: Yes Status: Acute (5) Cannabis dependence Current Visit: Yes Status: Acute (6) Nicotine dependence Current Visit: No Status: Chronic Qualifiers: Nicotine product type: cigarettes Substance use status: in withdrawal Qualified Code(s): F17.213 - Nicotine dependence, cigarettes, with withdrawal (7) ADHD (attention deficit hyperactivity disorder) Current Visit: Yes Status: Chronic - Initial Treatment Plan Initial Treatment Plan: 1) Start Belsomra 10 mg po HS prn for insomnia. 2) Continue inpatient detoxification
--- NOTE | 2020-02-09 12:03 | PN ---
[facility] CIWA - CIWA Score Nausea/Vomitin-No Nausea/No Vomiting Muscle Tremors: 3 Anxiety: 2 Agitation: 3 Paroxysmal Sweats: 2 Orientation: 0-Oriented Tacttile Disturbances: 0-None Auditory Disturbances: 0-None Visual Disturbances: 0-None Headache: 0-None Present CIWA-Ar Total Score: 10 BHS COWS - Scale Resting Pulse: 0= [place] 80 or Below Sweatin= Chills/Flushing Restless Observation: 1= Difficult to Sit Still Pupil Size: 0= Normal to Room Light Bone or Joint Aches: 2= Severe Diffuse Aches Runny Nose/ Eye Tearin= Nasal Congestion GI Upset > 30mins: 0= None Tremor Observation of Outstretched Hands: 2= Slight Tremor Visible Yawning Observation: 2= >3x During Session Anxiety or Irritability: 2=Irritable/Anxious Goose Flesh Skin: 3=Piloerection COWS Score: 14 BHS Progress Note (SOAP) Subjective: shakes sweats body aches interrupted sleep agitation restless nausea Objective: 02/09/20 12:03 Vital Signs Temperature 97.3 F L 02/09/20 09:10 Pulse Rate 71 02/09/20 09:10 Respiratory Rate 19 02/09/20 09:10 Blood Pressure 138/50 L 02/09/20 09:10 O2 Sat by Pulse Oximetry (%) 98 02/09/20 09:10 Laboratory Tests 02/08/20 02/08/20 02/08/20 14:00 14:00 14:00 WBC 6.5 RBC 4.00 Hgb 12.3 Hct 36.7 MCV 91.7 MCH 30.6 MCHC 33.4 RDW 13.3 Plt Count 184 MPV 10.1 Sodium 142 Potassium 4.4 Chloride 104 Carbon Dioxide 34 H Anion Gap 5 L BUN 13.0 Creatinine 1.2 Est GFR (CKD-EPI)AfAm 92.83 Est GFR (CKD-EPI)NonAf 80.09 Random Glucose 72 L Calcium 9.3 Total Bilirubin 0.4 AST 16 ALT 19 Alkaline Phosphatase 88 Total Protein 6.7 Albumin 4.0 Syphilis Serology Non-reactive labs noted aaox3 ambulating no acute distress Assessment: 02/09/20 12:03 withdrawals Plan: continue detox increase fluids
[2020-02-09] MEDS: NICOTINE POLACRILEX 2 MG GUM BUC PRN ×3 (12:39→17:48)
[2020-02-09] MEDS: diazePAM 5 MG TABLET PO PRN (17:50)
[2020-02-09] MEDS ORDERED: SUVOREXANT 10 MG TABLET PO PRN (22:00)
[2020-02-09] MEDS: THIAMINE HCL 100 MG TABLET (FP) PO SCH (23:21)
[2020-02-10] MEDS: diazePAM 5 MG TABLET PO SCH ×2 (06:43→17:37)
[2020-02-10] MEDS ORDERED: METHADONE HCL 10 MG TABLET (FOR DETOX USE ONLY) PO ONE (10:00)
[2020-02-10] MEDS: NICOTINE 14 MG/24 HOURS TOPICAL PATCH TD SCH (10:07)
[2020-02-10] MEDS: NICOTINE POLACRILEX 2 MG GUM BUC PRN ×4 (10:07→20:26)
[2020-02-10] MEDS: PRENATAL VITAMINS W/ FOLIC ACID TABLET (FP) PO SCH (10:07)
--- NOTE | 2020-02-10 10:29 | PN ---
S CIWA - CIWA Score Nausea/Vomitin-No Nausea/No Vomiting Muscle Tremors: 3 Anxiety: 2 Agitation: 3 Paroxysmal Sweats: 2 Orientation: 0-Oriented Tacttile Disturbances: 0-None Auditory Disturbances: 0-None Visual Disturbances: 0-None Headache: 0-None Present CIWA-Ar Total Score: 10 BHS COWS - Scale Resting Pulse: 0= [place] 80 or Below Sweatin=Flushed/Facial Moisture Restless Observation: 1= Difficult to Sit Still Pupil Size: 0= Normal to Room Light Bone or Joint Aches: 1= Mild Discomfort Runny Nose/ Eye Tearin= Nasal Congestion GI Upset > 30mins: 0= None Tremor Observation of Outstretched Hands: 1= Tremor [place], Not Seen Yawning Observation: 1= 1-2x During Session Anxiety or Irritability: 2=Irritable/Anxious Goose Flesh Skin: 0=Smooth Skin COWS Score: 9 BHS Progress Note (SOAP) Subjective: sweats shakes body aches interrupted sleep anxiety Objective: 02/10/20 10:25 Vital Signs Temperature 97.3 F L 02/10/20 05:51 Pulse Rate 62 02/10/20 05:51 Respiratory Rate 16 02/10/20 05:51 Blood Pressure 117/69 02/10/20 05:51 O2 Sat by Pulse Oximetry (%) 99 02/10/20 05:51 Laboratory Tests 02/08/20 02/08/20 02/08/20 14:00 14:00 14:00 WBC 6.5 RBC 4.00 Hgb 12.3 Hct 36.7 MCV 91.7 MCH 30.6 MCHC 33.4 RDW 13.3 Plt Count 184 MPV 10.1 Sodium 142 Potassium 4.4 Chloride 104 Carbon Dioxide 34 H Anion Gap 5 L BUN 13.0 Creatinine 1.2 Est GFR (CKD-EPI)AfAm 92.83 Est GFR (CKD-EPI)NonAf 80.09 Random Glucose 72 L Calcium 9.3 Total Bilirubin 0.4 AST 16 ALT 19 Alkaline Phosphatase 88 Total Protein 6.7 Albumin 4.0 Syphilis Serology Non-reactive COVID-19 (AMADEO) 02/08/20 14:55 WBC RBC Hgb Hct MCV MCH MCHC RDW Plt Count MPV Sodium Potassium Chloride Carbon Dioxide Anion Gap BUN Creatinine Est GFR (CKD-EPI)AfAm Est GFR (CKD-EPI)NonAf Random Glucose Calcium Total Bilirubin AST ALT Alkaline Phosphatase Total Protein Albumin Syphilis Serology COVID-19 (AMADEO) Not detected labs noted lying in bed no acute distress Assessment: 02/10/20 10:26 withdrawals Plan: continue detox increase fluids
[2020-02-10] MEDS: diazePAM 5 MG TABLET PO PRN ×2 (12:09→22:02)
[2020-02-10] MEDS: THIAMINE HCL 100 MG TABLET (FP) PO SCH (22:02)
[2020-02-11] MEDS ORDERED: diazePAM 5 MG TABLET PO ONE (06:00)
[2020-02-11] MEDS ORDERED: METHADONE HCL 5 MG TABLET (FOR DETOX USE ONLY) ONE (09:13)
[2020-02-11] MEDS ORDERED: METHADONE HCL 10 MG TABLET (FOR DETOX USE ONLY) ONE (09:14)
[2020-02-11] MEDS ORDERED: METHADONE (DETOX) 10 MG, METHADONE (DETOX) 5 MG PO ONE (10:00)
[2020-02-11] MEDS: NICOTINE 14 MG/24 HOURS TOPICAL PATCH TD SCH (10:36)
[2020-02-11] MEDS: PRENATAL VITAMINS W/ FOLIC ACID TABLET (FP) PO SCH (10:36)
[2020-02-11] MEDS: diazePAM 5 MG TABLET PO PRN (10:38)
[2020-02-11] MEDS: NICOTINE POLACRILEX 2 MG GUM BUC PRN ×2 (10:41→15:09)
--- NOTE | 2020-02-11 12:21 | PN ---
[facility] COWS - Scale Resting Pulse: 0= [place] 80 or Below Sweatin= Chills/Flushing Restless Observation: 1= Difficult to Sit Still Pupil Size: 0= Normal to Room Light Bone or Joint Aches: 2= Severe Diffuse Aches Runny Nose/ Eye Tearin= None GI Upset > 30mins: 0= None Tremor Observation of Outstretched Hands: 1= Tremor [place], Not Seen Yawning Observation: 1= 1-2x During Session Anxiety or Irritability: 1=Feels Anxious/Irritable Goose Flesh Skin: 0=Smooth Skin COWS Score: 7 B[facility] Progress Note (SOAP) Subjective: Complaints of body aches, anxiety, irritability, and sweats. Objective: 02/11/20 12:20 Vital Signs 02/11/20 02/11/20 05:49 09:10 Temperature 97.1 F L 97.8 F Pulse Rate 59 L 55 L Respiratory 16 16 Rate Blood Pressure 106/46 L 123/60 O2 Sat by Pulse 100 100 Oximetry (%) Laboratory Last Values WBC 6.5 K/mm3 (4.0-10.0) 02/08/20 14:00 RBC 4.00 M/mm3 (4.00-5.60) 02/08/20 14:00 Hgb 12.3 GM/dL (11.7-16.9) 02/08/20 14:00 Hct 36.7 % (35.4-49) 02/08/20 14:00 MCV 91.7 fl (80-96) 02/08/20 14:00 MCH 30.6 pg (25.7-33.7) 02/08/20 14:00 MCHC 33.4 g/dl (32.0-35.9) 02/08/20 14:00 RDW 13.3 % (11.9-15.9) 02/08/20 14:00 Plt Count 184 K/MM3 (134-434) 02/08/20 14:00 MPV 10.1 fl (7.5-11.1) 02/08/20 14:00 Sodium 142 mmol/L (136-145) 02/08/20 14:00 Potassium 4.4 mmol/L (3.5-5.1) 02/08/20 14:00 Chloride 104 mmol/L (98-107) 02/08/20 14:00 Carbon Dioxide 34 mmol/L (21-32) H 02/08/20 14:00 Anion Gap 5 MMOL/L (8-16) L 02/08/20 14:00 BUN 13.0 mg/dL (7-18) 02/08/20 14:00 Creatinine 1.2 mg/dL (0.55-1.3) 02/08/20 14:00 Est GFR (CKD-EPI)AfAm 92.83 02/08/20 14:00 Est GFR (CKD-EPI)NonAf 80.09 02/08/20 14:00 Random Glucose 72 mg/dL (74-106) L 02/08/20 14:00 Calcium 9.3 mg/dL (8.5-10.1) 02/08/20 14:00 Total Bilirubin 0.4 mg/dL (0.2-1) 02/08/20 14:00 AST 16 U/L (15-37) 02/08/20 14:00 ALT 19 U/L (13-61) 02/08/20 14:00 Alkaline Phosphatase 88 U/L (45-117) 02/08/20 14:00 Total Protein 6.7 g/dl (6.4-8.2) 02/08/20 14:00 Albumin 4.0 g/dl (3.4-5.0) 02/08/20 14:00 Syphilis Serology Non-reactive (NONREACTIVE) 02/08/20 14:00 COVID-19 ([facility]) Not detected (Not Detected) 02/08/20 14:55 Labs noted. Assessment: 02/11/20 12:20 Alert and oriented x 3, in no acute respiratory distress. Full ROM, ambulating in unit without assistance. Skin warm to touch without any lesions. Withdrawal symptoms. Plan: Continue detox protocol.
[2020-02-11] MEDS: hydrOXYzine PAMOATE 25 MG CAPSULE (FP) PO PRN (15:07)
[2020-02-11] MEDS: METHOCARBAMOL 500 MG TABLET PO PRN (15:07)
[2020-02-11] MEDS: THIAMINE HCL 100 MG TABLET (FP) PO SCH (22:52)
[2020-02-12] MEDS ORDERED: METHADONE HCL 10 MG TABLET (FOR DETOX USE ONLY) PO ONE (10:00)
[2020-02-12] MEDS: PRENATAL VITAMINS W/ FOLIC ACID TABLET (FP) PO SCH (10:18)
[2020-02-12] MEDS: NICOTINE 14 MG/24 HOURS TOPICAL PATCH TD SCH (10:18)
[2020-02-12] MEDS: hydrOXYzine PAMOATE 25 MG CAPSULE (FP) PO PRN ×4 (10:18→22:19)
[2020-02-12] MEDS: METHOCARBAMOL 500 MG TABLET PO PRN ×2 (10:19→17:59)
[2020-02-12] MEDS: NICOTINE POLACRILEX 2 MG GUM BUC PRN ×3 (10:19→18:00)
--- NOTE | 2020-02-12 11:12 | PN ---
[facility] COWS - Scale Resting Pulse: 0= [place] 80 or Below Sweatin= No chills or Flushing Restless Observation: 0= Sits Still Pupil Size: 0= Normal to Room Light Bone or Joint Aches: 1= Mild Discomfort Runny Nose/ Eye Tearin= None GI Upset > 30mins: 0= None Tremor Observation of Outstretched Hands: 1= Tremor [place], Not Seen Yawning Observation: 0= None Anxiety or Irritability: 1=Feels Anxious/Irritable Goose Flesh Skin: 0=Smooth Skin COWS Score: 3 BHS Progress Note (SOAP) Subjective: Complaints if mild joint discomfort, tremors and anxiety. Objective: 02/12/20 11:10 Vital Signs 02/12/20 02/12/20 05:26 09:09 Temperature 97.9 F 98.6 F Pulse Rate 61 78 Respiratory 16 16 Rate Blood Pressure 114/58 L 122/63 O2 Sat by Pulse 99 99 Oximetry (%) Laboratory Last Values WBC 6.5 K/mm3 (4.0-10.0) 02/08/20 14:00 RBC 4.00 M/mm3 (4.00-5.60) 02/08/20 14:00 Hgb 12.3 GM/dL (11.7-16.9) 02/08/20 14:00 Hct 36.7 % (35.4-49) 02/08/20 14:00 MCV 91.7 fl (80-96) 02/08/20 14:00 MCH 30.6 pg (25.7-33.7) 02/08/20 14:00 MCHC 33.4 g/dl (32.0-35.9) 02/08/20 14:00 RDW 13.3 % (11.9-15.9) 02/08/20 14:00 Plt Count 184 K/MM3 (134-434) 02/08/20 14:00 MPV 10.1 fl (7.5-11.1) 02/08/20 14:00 Sodium 142 mmol/L (136-145) 02/08/20 14:00 Potassium 4.4 mmol/L (3.5-5.1) 02/08/20 14:00 Chloride 104 mmol/L (98-107) 02/08/20 14:00 Carbon Dioxide 34 mmol/L (21-32) H 02/08/20 14:00 Anion Gap 5 MMOL/L (8-16) L 02/08/20 14:00 BUN 13.0 mg/dL (7-18) 02/08/20 14:00 Creatinine 1.2 mg/dL (0.55-1.3) 02/08/20 14:00 Est GFR (CKD-EPI)AfAm 92.83 02/08/20 14:00 Est GFR (CKD-EPI)NonAf 80.09 02/08/20 14:00 Random Glucose 72 mg/dL (74-106) L 02/08/20 14:00 Calcium 9.3 mg/dL (8.5-10.1) 02/08/20 14:00 Total Bilirubin 0.4 mg/dL (0.2-1) 02/08/20 14:00 AST 16 U/L (15-37) 02/08/20 14:00 ALT 19 U/L (13-61) 02/08/20 14:00 Alkaline Phosphatase 88 U/L (45-117) 02/08/20 14:00 Total Protein 6.7 g/dl (6.4-8.2) 02/08/20 14:00 Albumin 4.0 g/dl (3.4-5.0) 02/08/20 14:00 Syphilis Serology Non-reactive (NONREACTIVE) 02/08/20 14:00 COVID-19 ([facility]) Not detected (Not Detected) 02/08/20 14:55 Labs noted. Assessment: Alert and oriented x 3, in no acute respiratory distress. Full ROM, ambulatory in unit without any assistance. Skin warm to touch without any lesions. Mild withdrawal symptoms. Plan: Continue detox protocol. For D/C in AM
[2020-02-12] MEDS: THIAMINE HCL 100 MG TABLET (FP) PO SCH (22:16)
[2020-02-13] MEDS ORDERED: METHADONE HCL 5 MG TABLET (FOR DETOX USE ONLY) PO ONE (06:00)
[2020-02-13] MEDS: METHOCARBAMOL 500 MG TABLET PO PRN (06:53)
[2020-02-13] MEDS: hydrOXYzine PAMOATE 25 MG CAPSULE (FP) PO PRN (06:56)
[2020-02-13] MEDS: NICOTINE POLACRILEX 2 MG GUM BUC PRN (06:56)
[2020-02-13 11:57] VITALS: BP 112/58; PULSE 75; TEMP 98.4
--- NOTE | 2020-02-13 13:05 | DS ---
[facility] Detox Discharge Summary Admission Date: 02/08/20 Discharge Date: 02/13/20 - History Present History: Cannabis Dependence, Cocaine Dependence, Opioid Dependence Additional Comments: Pt is medically cleared and discharged today. Pt completed the detox protocol. Pt is encouraged to follow-up with an outpatient CD program and also to follow- up with his pmd which he verbalized understanding. Pt is AOX3, in no acute respiratory distress, Full ROM, and ambulatory. Pertinent Past History: h/o heroin, cocaine, and cannabis use disorder. - Physical Exam Results Vital Signs: Vital Signs Temperature 98.4 F 02/13/20 08:56 Pulse Rate 75 02/13/20 08:56 Respiratory Rate 19 02/13/20 08:56 Blood Pressure 112/58 L 02/13/20 08:56 O2 Sat by Pulse Oximetry (%) 95 02/13/20 08:56 Vital Signs 02/13/20 02/13/20 05:35 08:56 Temperature 98.2 F 98.4 F Pulse Rate 54 L 75 Respiratory 20 19 Rate Blood Pressure 129/74 112/58 L O2 Sat by Pulse 97 95 Oximetry (%) Laboratory Last Values WBC 6.5 K/mm3 (4.0-10.0) 02/08/20 14:00 RBC 4.00 M/mm3 (4.00-5.60) 02/08/20 14:00 Hgb 12.3 GM/dL (11.7-16.9) 02/08/20 14:00 Hct 36.7 % (35.4-49) 02/08/20 14:00 MCV 91.7 fl (80-96) 02/08/20 14:00 MCH 30.6 pg (25.7-33.7) 02/08/20 14:00 MCHC 33.4 g/dl (32.0-35.9) 02/08/20 14:00 RDW 13.3 % (11.9-15.9) 02/08/20 14:00 Plt Count 184 K/MM3 (134-434) 02/08/20 14:00 MPV 10.1 fl (7.5-11.1) 02/08/20 14:00 Sodium 142 mmol/L (136-145) 02/08/20 14:00 Potassium 4.4 mmol/L (3.5-5.1) 02/08/20 14:00 Chloride 104 mmol/L (98-107) 02/08/20 14:00 Carbon Dioxide 34 mmol/L (21-32) H 02/08/20 14:00 Anion Gap 5 MMOL/L (8-16) L 02/08/20 14:00 BUN 13.0 mg/dL (7-18) 02/08/20 14:00 Creatinine 1.2 mg/dL (0.55-1.3) 02/08/20 14:00 Est GFR (CKD-EPI)AfAm 92.83 02/08/20 14:00 Est GFR (CKD-EPI)NonAf 80.09 02/08/20 14:00 Random Glucose 72 mg/dL (74-106) L 02/08/20 14:00 Calcium 9.3 mg/dL (8.5-10.1) 02/08/20 14:00 Total Bilirubin 0.4 mg/dL (0.2-1) 02/08/20 14:00 AST 16 U/L (15-37) 02/08/20 14:00 ALT 19 U/L (13-61) 02/08/20 14:00 Alkaline Phosphatase 88 U/L (45-117) 02/08/20 14:00 Total Protein 6.7 g/dl (6.4-8.2) 02/08/20 14:00 Albumin 4.0 g/dl (3.4-5.0) 02/08/20 14:00 Syphilis Serology Non-reactive (NONREACTIVE) 02/08/20 14:00 COVID-19 ([facility]) Not detected (Not Detected) 02/08/20 14:55 Labs noted. Pertinent Admission Physical Exam Findings: withdrawal symptoms. - Treatment Hospital Course: Detox Protocol Followed, Detoxed Safely, Responded well, Discharged Condition Good - Medication Discharge Medications: Ambulatory Orders NK [No Known Home Medication] 02/17/17 - Diagnosis (1) Cannabis dependence Current Visit: Yes Status: Chronic (2) Cocaine dependence, uncomplicated Current Visit: Yes Status: Acute (3) Opioid dependence with withdrawal Current Visit: Yes Status: Acute (4) Nicotine dependence Current Visit: No Status: Chronic Qualifiers: Nicotine product type: cigarettes Substance use status: in withdrawal Qualified Code(s): F17.213 - Nicotine dependence, cigarettes, with withdrawal - AMA Did Patient Leave Against Medical Advice: No
== END 2020-02-13 09:10 | disposition home or self-care (01) | DRG 773 ==
LOC: YASAS 09:12 → Y6N 14:19
PROVIDERS: ADMIT Allergy & Immunology; ATTEND Allergy & Immunology
PROC: HZ2ZZZZ Detoxification Services for Substance Abuse Treatment (ICD-10-PCS; principal; 2020-02-08)
DX: F11.23 Opioid dependence with withdrawal (principal); F14.20 Cocaine dependence, uncomplicated; F13.20 Sedative, hypnotic or anxiolytic dependence, uncomplicated; F12.20 Cannabis dependence, uncomplicated; F17.210 Nicotine dependence, cigarettes, uncomplicated; F19.282 Other psychoactive substance dependence with psychoactive substance-induced sleep disorder; F90.9 Attention-deficit hyperactivity disorder, unspecified type; Z56.0 Unemployment, unspecified
CPT/HCPCS: 36415; 80053; 85027; 86780; 93005; 93010; U0003